=== PATIENT | female | born 1985 | race Caucasian/White ===

== ENCOUNTER → 2018-05-06 09:24 | Outpatient (CLI) | payer OTHER, SELFPAY ==
[2018-05-06 10:45] LABS: Add Manual Diff / Slide Review NO; Basophils Percent Auto 0.2 % (0-2); Eosinophils Percent Auto 1.7 % (2-4); Hematocrit 36.1 % (36-46); Hemoglobin 12.3 g/dL (12.0-16.0); Lymphocytes Percent Auto 26.4 % (25-40); Mean Corpuscular HGB Conc 34.2 % (30-36); Mean Corpuscular Hemoglobin 30.7 PG (26-34); Mean Corpuscular Volume 89.5 fL (80-100); Monocytes Percent Auto 5.3 % (3-14); Neutrophils Absolute Auto 4200 /uL (3000-5900); Neutrophils Percent Auto 66.4 % (50-75); Platelet Count 298 X10^3/uL (150-400); Red Blood Cell Count 4.03 X10^6/uL (4.0-5.2); Red Cell Distribution Width 11.7 % (11.6-14.8); White Blood Cell Count 6.3 X10^3/uL (4.5-11.0)
[2018-05-06 11:40] LABS: Appearance Urine UA CLEAR; Bilirubin Urine UA NEGATIVE (NEGATIVE); Color Urine UA YELLOW; Glucose Urine UA NEGATIVE (Normal); Ketones Urine UA NEGATIVE (NEGATIVE); Leukocyte Esterase Urine UA 1+ (NEGATIVE); Nitrite Urine UA NEGATIVE (Negative); Occult Blood Urine UA NEGATIVE (Negative); Protein Urine UA NEGATIVE (Negative); Specific Gravity Urine UA <=1.005 (1.000-1.035); Urobilinogen Urine UA 0.2 E.U./dL (0.2)
[2018-05-06 12:58] LABS: HIV 1 and 2 Antibody NEGATIVE (NEGATIVE); Hep C Virus Ab w/Reflex Quant NEGATIVE s/c (NEGATIVE); Hepatitis B Surface Antigen NEGATIVE s/c (NEGATIVE)
[2018-05-06 13:33] LABS: Bacteria Urine None Seen
[2018-05-06 13:50] LABS: RBC Urine 0-1/HPF (0-5/HPF); Squamous Epithelial Cell Urine 0-1 /HPF; Urine Comments Microscopic Normal; WBC Urine 0-1/HPF (0-5/HPF)
[2018-05-06 19:25] LABS: Rubella Antibody IgG 93.1 IU/mL (>15)
[2018-05-07 11:12] LABS: RPR Screen Nonreactive (Nonreactive)
[2018-05-07 15:00] LABS: HSV 2 IGG AB < 0.90 index (< 0.90); HSV1IGG < 0.90 index (< 0.90)
== END ==
PROVIDERS: PCP Family Medicine; Visit Provider Specialist
DX: Z34.01 Encounter for supervision of normal first pregnancy, first trimester (principal); Z3A.09 9 weeks gestation of pregnancy
CPT/HCPCS: 36415; 80055; 81003; 81015; 86695; 86696; 86703; 86787; 86803; 86850; 86900; 86901; 87086

== ENCOUNTER → 2018-07-18 07:16 | Outpatient (CLI) | payer OTHER, SELFPAY ==
--- NOTE | 2018-07-18 07:17 | DI.US.S_ITS ---
PROCEDURE: US OB >= 14 WEEKS FETUS INDICATIONS: ANATOMY OUTSIDE/PRIOR DATING DATA: Last menstrual period (LMP): 02/24/18. LMP-based estimated date of delivery (FLOYD): 12/06/18. First dating scan (date and location): 05/13/18. Estimated date of delivery (FLOYD) from first dating scan: 12/01/18. TECHNIQUE: Real-time scanning was performed of the fetus, with image documentation and biometric measurements. Endovaginal scanning: No COMPARISON: [facility], , OB >= 14 WEEKS FETUS, 06/28/2018, 13:55. FINDINGS: General: A single living intrauterine gestation is present. Presentation: Vertex. Placenta: Placental position is posterior, without previa. Amniotic fluid index: 13.8 cm, normal range is 5-24 cm. heart rate: 144 beats per minute. Maternal cervical canal: 4.3 cm long. Normal lower limit is 2.5 cm. biometrics: Biparietal diameter: 20 weeks 6 days Head circumference: 20 weeks 3 days Abdominal circumference: 20 weeks 2 days Femur length: 20 weeks 6 days Estimated gestational age from initial scan: 20 weeks 4 days Composite gestational age from present scan: 20 weeks 4 days Estimated weight and percentile: 462 g; 44 percentile Measurement variability for biometric dating: +/- 7 days from 14 weeks to 15 weeks 6 days gestation, +/- 10 days from 16 weeks to 21 weeks 6 days gestation, +/- 2 weeks from 22 weeks to 27 weeks 6 days gestation, +/- 3 weeks for 28 weeks gestation or later. weight reference: 4500 g or EFW >90/95% is considered macrosomia or large for gestational age. EFW <10% is small for gestational age. EFW 5% or less is considered intra-uterine growth restriction. Anatomic survey: Neuro: Ventricles are non-dilated at less than 10 mm. Cisterna magna is normal at 3-11 mm. Cerebellum is normal in size and morphology. Nuchal skin fold: Normal at less than 6 mm between 14-21 weeks gestational age. Face: Nose and lips, facial profile are normal. Spine: No evidence for spina bifida. Heart: 4-chambered heart is present, with normal ventricular outflow tracts. Diaphragm: Diaphragm is intact. Stomach: Left-sided stomach is present. Kidneys: No hydronephrosis. Normal is less than 5 mm in 2nd trimester, less than 7 mm in 3rd trimester. Cord: 3-vessel cord has orthotopic insertion. Bladder: Normal in size. Extremities: All 4 extremities identified. IMPRESSION: 1. Single living IUP we demonstrated and interval growth of normal. 2. Normal anatomic survey. Dictated by: Jimenez RODRIGUEZ Interpreted: Mary Campos MD on 07/18/2018 at 13:11 Approved by: Mary Campos M.D. on 07/18/2018 at 16:48
== END ==
PROVIDERS: PCP Family Medicine; Visit Provider Specialist
DX: Z34.02 Encounter for supervision of normal first pregnancy, second trimester (principal); Z3A.20 20 weeks gestation of pregnancy
CPT/HCPCS: 76811

== ENCOUNTER → 2018-08-31 10:01 | Outpatient (CLI) | payer OTHER, SELFPAY ==
[2018-08-31 11:52] LABS: Hematocrit 34.2 % (36-46); Hemoglobin 11.4 g/dL (12.0-16.0)
[2018-08-31 12:19] LABS: GTT (PREG) 1 Hour PP 50gm Dose 90 mg/dL (76-139)
== END ==
PROVIDERS: PCP Family Medicine; Visit Provider Specialist
DX: Z3A.26 26 weeks gestation of pregnancy (principal)
CPT/HCPCS: 36415; 82950; 85014; 85018

== ENCOUNTER → 2018-11-06 08:26 | Outpatient (CLI) | payer OTHER, SELFPAY ==
[2018-11-07 14:06] LABS: Strep Grp B PCR NEG for Grp B Strep
== END ==
PROVIDERS: PCP Family Medicine; Visit Provider Specialist
DX: Z34.83 Encounter for supervision of other normal pregnancy, third trimester (principal); Z3A.36 36 weeks gestation of pregnancy
CPT/HCPCS: 87653

== ENCOUNTER 2018-12-05 12:07 | Outpatient (CLI) | payer OTHER, SELFPAY ==
--- NOTE | 2018-12-05 12:56 | PM.OBTRLD ---
Visit Information Visit Information Date of evaluation: 12/05/18 Primary OB Provider: Aviva Carter Reason for Evaluation: Yes non-stress test non-stress test reason: other (post dates) PFSH Social History Smoking Status: Never smoker Social History Smoking Status: Never smoker Evaluation Evaluation Baseline heart rate: 120 Variability: Moderate (11-25) monitor accelerations: Present monitor decelerations: Absent Contraction Frequency (minutes): 8 Uterine Contraction Intensity: Mild Category of Tracing: I Cervical dilation (cm): 3 Cervical effacement (%): 50 station: -2 Diagnosis, Plan/Disposition Final Diagnosis (1) 40 weeks gestation of : Current Visit: Yes Status: Acute Plan/Disposition Plan: home induction scheduled in am OB Disposition: home
== END 2018-12-05 13:15 | disposition home or self-care (01) ==
LOC: LABOR 12:23 → OB 12-06 12:43
PROVIDERS: PCP Family Medicine; Visit Provider Specialist
DX: O48.0 Post-term pregnancy (principal); Z3A.40 40 weeks gestation of pregnancy
CPT/HCPCS: 59025; G0378; G0379

== ENCOUNTER 2018-12-06 07:04 | Inpatient (IN) | payer OTHER, SELFPAY ==
[2018-12-06] MEDS: LACTATED RINGERS 1,000 ML 100 ML IV ×3 (08:00→19:08)
[2018-12-06] MEDS: OXYTOCIN PREMIX 30 UNIT/500 ML PLAST..BAG IV (08:27)
--- NOTE | 2018-12-06 08:36 | PM.OBHP.1 ---
OB HPI Date/Time Date of admission: 12/06/18 Date Patient Seen: 12/06/18 Time Patient Seen: 08:37 History of Present Condition Chief complaint: EVALUATION OF LABOR : 1 Para: 0 Estimated Date of Delivery: 12/03/18 Estimated Gestational Age (weeks): 40 Narrative: Nayeli Alberto is a 33 year old female admitted for induction for grade 3 placenta decreased amniotic fluid Indications Indication for induction OB: other (Grade 3 placenta and decreased amniotic fluid) History of Present care: good care, initiated at week # (11), number of visits (13) and pounds weight gain (40) Dating criteria: LMP confirmed by 1st trimester US Ultrasounds: normal mid trimester US Obstetrical complications: none Medical complications: none Preadmission Labs Blood type: A (+) positive -: Antibody screen: negative, GBS status: negative, HBsAG: negative, HIV: negative and RPR/VDLR: negative -: Chlamydia screen: not detected and Gonorrhea screen: not detected -: Rubella: immune and Varicella: immune HCAB: negative PAP: Normal 1 hr GTT: 90 Evaluation Evaluation Baseline heart rate: 130 Variability: Moderate (11-25) monitor accelerations: Present monitor decelerations: Absent Contraction Frequency (minutes): 0 Category of Tracing: I Cervical dilation (cm): 3 Cervical effacement (%): 50 station: -2 [facility] Social History Smoking Status: Never smoker Social History Smoking Status: Never smoker Meds Home Medications Medication Instructions Recorded Confirmed Type 1 tab PO DAILY 05/06/18 05/06/18 History vitamin,calcium,vxnniiwr-maqv-ppvlb acid tablet Double Electric Breast Pump #1 ea 09/24/18 Rx Allergies Allergy/AdvReac Type Severity Reaction Status Date / Time No Known Drug Allergies Allergy Unverified 05/06/18 08:36 Review of Systems Review of Systems Patient denies any headaches, scotomata, epigastric pain. No leakage of fluid. Good movement. All systems reviewed & are unremarkable except as noted in HPI and below Exam Vital Signs (past 8 hours): Blood pressure 125/87, pulse 100, temperature 97.1? Narrative Exam Narrative: HEENT exam within normal limits. Lungs are clear to auscultation percussion. Heart is regular rate and rhythm no S3-S4 or murmurs. Abdomen is gravid. Extremities with trace edema and nontender. Assessment and Plan Assessment and Plan Assessment and Plan narrative: 40w 3d gestation with grade 3 placenta and YOLY of 6 admitted for Pitocin induction Time Spent with Patient Total time spent with greater than 50% in coordination of care (as documented) at patient's floor/unit and/or counseling patient:: less than 15 minutes
--- NOTE | 2018-12-06 08:43 | P.HPOB_ITS ---
OB HPI Date/Time Date of admission: 12/06/18 Date Patient Seen: 12/06/18 Time Patient Seen: 08:37 History of Present Condition Chief complaint: EVALUATION OF LABOR : 1 Para: 0 Estimated Date of Delivery: 12/03/18 Estimated Gestational Age (weeks): 40 Narrative: Nayeli Alberto is a 33 year old female admitted for induction for grade 3 placenta decreased amniotic fluid Indications Indication for induction OB: other (Grade 3 placenta and decreased amniotic fluid) History of Present care: good care, initiated at week # (11), number of visits (13) and pounds weight gain (40) Dating criteria: LMP confirmed by 1st trimester US Ultrasounds: normal mid trimester US Obstetrical complications: none Medical complications: none Preadmission Labs Blood type: A (+) positive -: Antibody screen: negative, GBS status: negative, HBsAG: negative, HIV: negative and RPR/VDLR: negative -: Chlamydia screen: not detected and Gonorrhea screen: not detected -: Rubella: immune and Varicella: immune HCAB: negative PAP: Normal 1 hr GTT: 90 Evaluation Evaluation Baseline heart rate: 130 Variability: Moderate (11-25) monitor accelerations: Present monitor decelerations: Absent Contraction Frequency (minutes): 0 Category of Tracing: I Cervical dilation (cm): 3 Cervical effacement (%): 50 station: -2 [facility] Social History Smoking Status: Never smoker Social History Smoking Status: Never smoker Meds Home Medications Medication Instructions Recorded Confirmed Type 1 tab PO DAILY 05/06/18 05/06/18 History vitamin,calcium,ejamudcf-blwg-tikrq acid tablet Double Electric Breast Pump #1 ea 09/24/18 Rx Allergies Allergy/AdvReac Type Severity Reaction Status Date / Time No Known Drug Allergies Allergy Unverified 05/06/18 08:36 Review of Systems Review of Systems Patient denies any headaches, scotomata, epigastric pain. No leakage of fluid. Good movement. All systems reviewed & are unremarkable except as noted in HPI and below Exam Vital Signs (past 8 hours): Blood pressure 125/87, pulse 100, temperature 97.1? Narrative Exam Narrative: HEENT exam within normal limits. Lungs are clear to auscultation percussion. Heart is regular rate and rhythm no S3-S4 or murmurs. Abdomen is gravid. Extremities with trace edema and nontender. Assessment and Plan Assessment and Plan Assessment and Plan narrative: 40w 3d gestation with grade 3 placenta and YOLY of 6 admitted for Pitocin induction Time Spent with Patient Total time spent with greater than 50% in coordination of care (as documented) at patient's floor/unit and/or counseling patient:: less than 15 minutes
[2018-12-06 09:59] LABS: Add Manual Diff / Slide Review NO; Basophils Absolute Auto 0 /uL (0-100); Basophils Percent Auto 0.2 % (0-2); Eosinophils Absolute Auto 100 /uL (0-450); Eosinophils Percent Auto 1.2 % (2-4); Hematocrit 34.1 % (36-46); Hemoglobin 11.1 g/dL (12.0-16.0); Lymphocytes Absolute Auto 1600 /uL (1100-4500); Lymphocytes Percent Auto 17.7 % (25-40); Mean Corpuscular HGB Conc 32.5 % (30-36); Mean Corpuscular Hemoglobin 29.6 PG (26-34); Mean Corpuscular Volume 90.9 fL (80-100); Monocytes Absolute Auto 500 /uL (0-900); Monocytes Percent Auto 5.1 % (3-14); Neutrophils Absolute Auto 6900 /uL (1500-7000); Neutrophils Percent Auto 75.8 % (50-75); Platelet Count 217 X10^3/uL (150-400); Red Blood Cell Count 3.75 X10^6/uL (4.0-5.2); Red Cell Distribution Width 13.9 % (11.6-14.8)
[2018-12-06 14:04] VITALS: BP 125/87
--- NOTE | 2018-12-06 21:11 | PM.OBPRVD ---
Delivery date: 12/06/18 Intrapartal events: None Induction method: per pitocin protocol Delivery monitor: external FHT and external uterine Route of delivery: L&D Laceration Description: Periurethral - 1st Degree Delivery repair: chromic (4-0) Estimated blood loss (mL): 100 Anesthesia type: Epidural Narrative: Patient arrived on Labor and delivery for induction for grade 3 placenta and YOLY of 6. She was started on Pitocin. She had spontaneous rupture membranes. She received an epidural catheter for pain control. heart tones category 1-2 throughout labor. Patient delivered spontaneously, over an intact perineum. The viable male was placed on maternal abdomen. The cord was clamped at 5 minutes. Cord bloods were obtained. Placenta delivered spontaneously, intact, with 3 vessels. There were no cervical or vaginal tears. There was a first-degree left periurethral labial tear that was repaired with 4 0 chromic suture. Estimated blood loss 100 cc. Both infant mother doing well. Baby 1: gender: Male Presentation: vertex position: Right Occiput Anterior Placenta delivery description: Spontaneous cord vessel description: Around Body x1 score (1 min): 6 score (5 min): 8 Plan for aftercare: Routine care
[2018-12-06] MEDS: DERMOPLAST SPRAY 20% 60 ML 1 SPRAY TOP (23:34)
[2018-12-06] MEDS: IBUPROFEN 600 MG TABLET PO (23:34)
[2018-12-07] MEDS: IBUPROFEN 600 MG TABLET PO ×3 (05:38→18:28)
[2018-12-07 07:44] LABS: Add Manual Diff / Slide Review NO; Basophils Absolute Auto 0 /uL (0-100); Basophils Percent Auto 0.1 % (0-2); Eosinophils Absolute Auto 100 /uL (0-450); Eosinophils Percent Auto 0.6 % (2-4); Hematocrit 32.9 % (36-46); Hemoglobin 10.9 g/dL (12.0-16.0); Lymphocytes Absolute Auto 1500 /uL (1100-4500); Lymphocytes Percent Auto 10.2 % (25-40); Mean Corpuscular HGB Conc 33.1 % (30-36); Mean Corpuscular Hemoglobin 29.9 PG (26-34); Mean Corpuscular Volume 90.2 fL (80-100); Monocytes Absolute Auto 800 /uL (0-900); Monocytes Percent Auto 5.3 % (3-14); Neutrophils Absolute Auto 12700 /uL (1500-7000); Neutrophils Percent Auto 83.8 % (50-75); Platelet Count 211 X10^3/uL (150-400); Red Blood Cell Count 3.65 X10^6/uL (4.0-5.2); Red Cell Distribution Width 13.9 % (11.6-14.8); White Blood Cell Count 15.1 X10^3/uL (4.5-11.0)
--- NOTE | 2018-12-07 11:49 | PM.OBPN.1 ---
Subjective - OB Patient comments: no complaints baby status: doing well [place] feeding status: exclusively breast feeding Date Patient Seen: 12/07/18 Time Patient Seen: 11:50 Interval history: Patient is doing well. She has some tenderness of her vaginal opening. Bleeding is mild. No headaches, scotomata, epigastric pain. Exam Vital Signs (past 8 hours): Blood pressure 145/83, pulse 73, temperature 97.3? Narrative Exam Narrative: Abdomen is soft, nontender. Uterus is firm, at U, nontender. Mild lochia. Extremities without edema and nontender. Objective Labs Result Diagrams: 12/07/18 07:15 Labs: Laboratory Results - last 24 hr 12/07/18 07:15 WBC 15.1 H D RBC 3.65 L Hgb 10.9 L Hct 32.9 L MCV 90.2 MCH 29.9 MCHC 33.1 RDW 13.9 Plt Count 211 Neut % (Auto) 83.8 H Lymph % (Auto) 10.2 L [place] % (Auto) 5.3 Eos % (Auto) 0.6 L Baso % (Auto) 0.1 Neut # (Auto) 70908 H Lymph # (Auto) 1500 [place] # (Auto) 800 Eos # (Auto) 100 Baso # (Auto) 0 Assessment & Plan (1) Vaginal delivery: Status: Acute Assessment and plan: Patient is day 1 doing well. Routine care. Probably home in a.m. if doing well Current Visit: Yes Plan day: 1 plan OB: routine care Time Spent With Patient Total time spent is greater than 50% in coordination of care (as documented) at patient's floor/unit and/or counseling patient: less than 15 minutes
--- NOTE | 2018-12-07 11:52 | P.PNOB_ITS ---
Subjective - OB Patient comments: no complaints baby status: doing well [place] feeding status: exclusively breast feeding Date Patient Seen: 12/07/18 Time Patient Seen: 11:50 Interval history: Patient is doing well. She has some tenderness of her vaginal opening. Bleeding is mild. No headaches, scotomata, epigastric pain. Exam Vital Signs (past 8 hours): Blood pressure 145/83, pulse 73, temperature 97.3? Narrative Exam Narrative: Abdomen is soft, nontender. Uterus is firm, at U, nontender. Mild lochia. Extremities without edema and nontender. Objective Labs Result Diagrams: 12/07/18 07:15 Labs: Laboratory Results - last 24 hr 12/07/18 07:15 WBC 15.1 H D RBC 3.65 L Hgb 10.9 L Hct 32.9 L MCV 90.2 MCH 29.9 MCHC 33.1 RDW 13.9 Plt Count 211 Neut % (Auto) 83.8 H Lymph % (Auto) 10.2 L [place] % (Auto) 5.3 Eos % (Auto) 0.6 L Baso % (Auto) 0.1 Neut # (Auto) 88265 H Lymph # (Auto) 1500 [place] # (Auto) 800 Eos # (Auto) 100 Baso # (Auto) 0 Assessment & Plan (1) Vaginal delivery: Status: Acute Assessment and plan: Patient is day 1 doing well. Routine care. Probably home in a.m. if doing well Current Visit: Yes Plan day: 1 plan OB: routine care Time Spent With Patient Total time spent is greater than 50% in coordination of care (as documented) at patient's floor/unit and/or counseling patient: less than 15 minutes
[2018-12-08] MEDS: IBUPROFEN 600 MG TABLET PO ×2 (05:09→12:05)
--- NOTE | 2018-12-08 09:47 | PM.OBDS.1 ---
Discharge Providers Date of admission: 12/06/18 07:04 Discharge Date: 12/08/18 Primary care physician: Mariusz Juan MD Consults: 12/06/18 23:22 Consult to Insole Presser Routine Comment: Discharge provider: Aviva Carter MD Summary Date Patient Seen: 12/08/18 Time Patient Seen: 09:48 Procedures: Pitocin induction, epidural catheter, spontaneous vaginal delivery, repair of first-degree labial laceration Hospital Course: Patient arrived on Labor and delivery for Pitocin induction for postdates, grade 3 placenta, decreased amniotic fluid she underwent Pitocin induction and had a epidural catheter for pain control. Patient had a prolonged 2nd stage of 5 hours and 42 minutes. This was due to the fetus coming down an asynclitic position and periodic need to stop pushing for various reasons. She delivered by spontaneousl vaginal delivery. She had a first-degree labial tear that was repaired. She did well . She is having some issues with breast-feeding. She has a follow-up appointment in 1 day with consult. Her pain is under control. She has mild bleeding. No signs or symptoms of preeclampsia. Peripartum Data Delivery Method: Natural Vaginal Laceration description: Periurethral - 1st Degree Procedures: Pitocin induction, epidural catheter, spontaneous vaginal delivery, repair of first-degree labial laceration complications: none [place] 1: Gender: Male Disposition of : home Discharge Diagnosis (1) Vaginal delivery: Status: Acute Status at Discharge Cognitive/behavioral status at discharge: oriented Functional status at discharge: independent ambulation Overall status at discharge: patient is progressing back to baseline Time Spent with Patient Total time spent providing and/or coordinating discharge services: Objective Labs Result Diagrams: 12/07/18 07:15 Exam Vital Signs (past 8 hours): Blood pressure 146/94 max with most blood pressures less than or equal to 130/75, pulse 78, temperature 97.9? Narrative Exam Narrative: Patient's abdomen is soft, nontender. Uterus is firm, at U, nontender. Her repair is intact. Mild lochia. Extremities without edema and nontender. Patient is A positive and rubella immune. She received it Tdap vaccine in the 3rd trimester. Discharge Plan Discharge Plan Patient Disposition: Home Discharge Med Rec/Prescriptions Prescriptions: New ibuprofen 600 mg Tablet 600 mg PO Q6HR PRN (Reason: Pain, Mild (1-3)) Qty: 20 RF: 0 Continued prenat.vits,da,qxo-wkoz-hzvsx tablet 1 tab PO DAILY RF: 0 No Action Double Electric Breast Pump Qty: 1 RF: 0 Follow up/Referrals: Mariusz Juan MD [Primary Care Provider] - Aviva Carter MD [Family Provider] - 1 Month Provider Discharge Instructions Diet: Regular Activity: Nothing in vagina for 4 weeks Skin/Wound/Dressing Care Report to your healthcare provider any signs of infection, such as:: chills, fever and increased pain Discharge Data Primary Care Provider: Mariusz Juan Attending Provider: Aviva Carter Admit Date/Time: 12/06/18 07:04
--- NOTE | 2018-12-08 09:53 | P.DS_ITS ---
Discharge Providers Date of admission: 12/06/18 07:04 Discharge Date: 12/08/18 Primary care physician: Mariusz Juan MD Consults: 12/06/18 23:22 Consult to Support Coordinator Routine Comment: Discharge provider: Aviva Carter MD Summary Date Patient Seen: 12/08/18 Time Patient Seen: 09:48 Procedures: Pitocin induction, epidural catheter, spontaneous vaginal delivery, repair of first-degree labial laceration Hospital Course: Patient arrived on Labor and delivery for Pitocin induction for postdates, grade 3 placenta, decreased amniotic fluid she underwent Pitocin induction and had a epidural catheter for pain control. Patient had a prolonged 2nd stage of 5 hours and 42 minutes. This was due to the fetus coming down an asynclitic position and periodic need to stop pushing for various reasons. She delivered by spontaneousl vaginal delivery. She had a first-degree labial tear that was repaired. She did well . She is having some issues with breast- feeding. She has a follow-up appointment in 1 day with consult. Her pain is under control. She has mild bleeding. No signs or symptoms of preeclampsia. Peripartum Data Infant Delivery Method: Natural Vaginal Laceration description: Periurethral - 1st Degree Procedures: Pitocin induction, epidural catheter, spontaneous vaginal delivery, repair of first-degree labial laceration complications: none 1: Gender: Male Disposition of : home Discharge Diagnosis (1) Vaginal delivery: Status: Acute Status at Discharge Cognitive/behavioral status at discharge: oriented Functional status at discharge: independent ambulation Overall status at discharge: patient is progressing back to baseline Time Spent with Patient Total time spent providing and/or coordinating discharge services: Objective Labs Result Diagrams: 12/07/18 07:15 Exam Vital Signs (past 8 hours): Blood pressure 146/94 max with most blood pressures less than or equal to 130/75, pulse 78, temperature 97.9? Narrative Exam Narrative: Patient's abdomen is soft, nontender. Uterus is firm, at U, nontender. Her repair is intact. Mild lochia. Extremities without edema and nontender. Patient is A positive and rubella immune. She received it Tdap vaccine in the 3rd trimester. Discharge Plan Discharge Plan Patient Disposition: Home Discharge Med Rec/Prescriptions Prescriptions: New ibuprofen 600 mg Tablet 600 mg PO Q6HR PRN (Reason: Pain, Mild (1-3)) Qty: 20 RF: 0 Continued prenat.vits,da,jpx-qbck-smdhu tablet 1 tab PO DAILY RF: 0 No Action Double Electric Breast Pump Qty: 1 RF: 0 Follow up/Referrals: Mariusz Juan MD [Primary Care Provider] - Aviva Carter MD [Family Provider] - 1 Month Provider Discharge Instructions Diet: Regular Activity: Nothing in vagina for 4 weeks Skin/Wound/Dressing Care Report to your healthcare provider any signs of infection, such as:: chills, fever and increased pain Discharge Data Primary Care Provider: Mariusz Juan Attending Provider: Aviva Carter Admit Date/Time: 12/06/18 07:04
[2018-12-08 11:18] VITALS: BP 134/92; PULSE 87; RESP 16; TEMP 36.7
== END 2018-12-08 12:20 | disposition home or self-care (01) | DRG 806 ==
PROVIDERS: Admitting Provider Specialist; Family Provider Specialist; PCP Family Medicine; Visit Provider Specialist
DX: O44.03 Complete placenta previa NOS or without hemorrhage, third trimester (principal); O41.03X0 Oligohydramnios, third trimester, not applicable or unspecified; Z37.0 Single live birth; Z3A.40 40 weeks gestation of pregnancy; O70.0 First degree perineal laceration during delivery
CPT/HCPCS: 01967; 36415; 59025; 59050; 59400; 85025; 86850; 86900; 86901; G0379; J2590

== ENCOUNTER → 2020-09-23 09:28 | Outpatient (CLI) | payer OTHER, SELFPAY ==
[2020-09-23] MEDS: COVID-19 VACC, Ad26(JANSSEN)/PF 0.5 ML IM (09:34)
--- NOTE | 2020-09-23 11:04 | PC.NURSE ---
Patient became pale, diaphoretic. Moved patient to recliner. Put patient in reclining position. 9:47 BP 130/83 P 82 Sat 98% 9:57 BP 133/91 P 87 Sat 99% - Patient not as pale, sipping juice 10:10 BP 133/91 P 89 Sat 100% - pt states she feel fine, skin pink 10:15 BP 139/95 P 95 Sat 100% - pt states she feels fine. continued observation because of increase in BP and P 10:25 BP 152/86 P 92 Sat 100% Patient skin pink, no longer diaphoretic. States she feels well. Patient encouraged to follow up with PCP regarding elevated diastolic blood pressure.
== END ==
PROVIDERS: Family Provider Specialist; PCP Family Medicine; Visit Provider Internal Medicine
DX: Z23 Encounter for immunization (principal)
CPT/HCPCS: 0031A; 91303

== ENCOUNTER → 2020-10-07 09:00 | Outpatient (CLI) | payer OTHER, SELFPAY ==
[2020-10-07 09:49] LABS: Add Manual Diff / Slide Review NO; Basophils Absolute Auto 0 /uL (0-100); Basophils Percent Auto 0.4 % (0-2); Eosinophils Absolute Auto 100 /uL (0-450); Eosinophils Percent Auto 1.3 % (2-4); Hematocrit 38.4 % (36-46); Hemoglobin 13.2 g/dL (12.0-16.0); Lymphocytes Absolute Auto 1300 /uL (1100-4500); Lymphocytes Percent Auto 22.5 % (25-40); Mean Corpuscular HGB Conc 34.3 % (30-36); Mean Corpuscular Hemoglobin 31.3 PG (26-34); Mean Corpuscular Volume 91.4 fL (80-100); Monocytes Absolute Auto 300 /uL (0-900); Monocytes Percent Auto 5.6 % (3-14); Neutrophils Absolute Auto 4000 /uL (1500-7000); Neutrophils Percent Auto 70.2 % (50-75); Platelet Count 318 X10^3/uL (150-400); Red Cell Distribution Width 12.2 % (11.6-14.8); White Blood Cell Count 5.7 X10^3/uL (4.5-11.0)
[2020-10-07 10:10] LABS: Alanine Aminotransferase 14 IU/L (<35); Albumin 4.6 g/dL (3.5-5.0); Albumin Globulin Ratio 1.6 (1.0-2.8); Alkaline Phosphatase 68 U/L (38-126); Aspartate Aminotransferase 23 IU/L (14-36); BUN Creatinine Ratio 14.8 (6-22); Bilirubin Total 0.3 mg/dL (0.2-1.3); Blood Urea Nitrogen 8 mg/dL (7-17); Calcium 9.5 mg/dL (8.4-10.2); Carbon Dioxide 29 mmol/L (22-32); Chloride 101 mmol/L (98-107); Cholesterol 184 mg/dL (140-199); Estimated Glomerular Filt Rate > 60.0 mL/min (>60); Globulin 2.9 g/dL (1.7-4.1); Glucose 108 mg/dL (70-100); HDL Cholesterol 55 mg/dL (40-60); HEMOLYSIS < 15 (0-50); LDL Cholesterol Calculated 111 mg/dL (<100); Potassium 3.9 mmol/L (3.4-5.1); Sodium 139 mmol/L (137-145); Total Protein 7.5 g/dL (6.3-8.2); Triglycerides 88 mg/dL (35-150)
[2020-10-07 10:45] LABS: TSH w/ Reflex to FT4 2.14 uIU/mL (0.47-4.68)
== END ==
PROVIDERS: Family Provider Specialist; PCP Family Medicine; Referring Provider Family Medicine; Visit Provider Family Medicine
DX: I10 Essential (primary) hypertension (principal)
CPT/HCPCS: 36415; 80053; 80061; 84443; 85025

== ENCOUNTER → 2021-08-26 09:17 | Outpatient (CLI) | payer OTHER, SELFPAY ==
--- NOTE | 2021-08-26 09:19 | DI.US.S_ITS ---
PROCEDURE: US OB <= 14 WEEKS FETUS INDICATIONS: DATES OUTSIDE/PRIOR DATING DATA: Last menstrual period (LMP): June 21, 2021. LMP-based estimated date of delivery (FLOYD): March 28, 2022. First dating scan (date): August 27, 2019. Estimated date of delivery (FLOYD) from first dating scan: March 29, 2022. TECHNIQUE: Real-time scanning was performed of the fetus and maternal pelvic organs, with image documentation. Endovaginal scanning was also performed to better visualize the fetus and maternal ovaries. COMPARISON: [facility], US, US OB <= 14 WEEKS FETUS, 05/13/2018, 8:38. FINDINGS: Embryo: [place]-rump length: 2.5 cm, compatible with a 9 week, 2 day gestation. Heart rate: 182 beats per Min Maternal organs: Thick-walled lesion in the right ovary, compatible with a corpus luteum. IMPRESSION: Early live single intrauterine gestation as detailed above. We strive to produce accurate, complete, and clear reports of imaging services. To assist us in improving patient care, this report was composed using standard report templates and voice recognition software. Therefore, it may contain abnormal punctuation, insertions and/or omissions. Occasional wrong-word or sound-alike substitutions may occur. Though we review the report and make efforts to correct it, we do recommend that the report be read carefully in proper context to recognize any text inaccuracies. Dictated by: Grover Piper M.D. on 08/26/2021 at 10:08 Approved by: Grover Piper M.D. on 08/26/2021 at 10:10
[2021-08-26 12:16] LABS: Alanine Aminotransferase 11 IU/L (<35); Albumin 4.4 g/dL (3.5-5.0); Albumin Globulin Ratio 1.4 (1.0-2.8); Alkaline Phosphatase 41 U/L (38-126); Aspartate Aminotransferase 24 IU/L (14-36); BUN Creatinine Ratio 15.6 (6-22); Bilirubin Total 0.3 mg/dL (0.2-1.3); Blood Urea Nitrogen 7 mg/dL (7-17); Calcium 9.4 mg/dL (8.4-10.2); Carbon Dioxide 26 mmol/L (22-32); Chloride 104 mmol/L (98-107); Estimated Glomerular Filt Rate > 60.0 mL/min (>60); Globulin 3.2 g/dL (1.7-4.1); Glucose 93 mg/dL (70-100); HEMOLYSIS < 15 (0-50); Potassium 3.9 mmol/L (3.4-5.1); Sodium 135 mmol/L (137-145); Total Protein 7.6 g/dL (6.3-8.2)
[2021-08-26 12:47] LABS: Appearance Urine UA CLEAR; Bilirubin Urine UA NEGATIVE (NEGATIVE); Color Urine UA YELLOW; Glucose Urine UA NEGATIVE (Negative); Ketones Urine UA NEGATIVE (NEGATIVE); Leukocyte Esterase Urine UA NEGATIVE (NEGATIVE); Nitrite Urine UA NEGATIVE (Negative); Occult Blood Urine UA NEGATIVE (Negative); Protein Urine UA NEGATIVE (Negative); Specific Gravity Urine UA <=1.005 (1.000-1.035); Urobilinogen Urine UA 0.2 E.U./dL (0.2)
[2021-08-26 12:51] LABS: Hepatitis B Surface Antigen NEGATIVE s/c (NEGATIVE); Rubella Antibody IgG 89.5 IU/mL (>15)
[2021-08-26 13:05] LABS: HIV 1 & 2 Ab/Ag 4th Gen Combo NEGATIVE (NEGATIVE); Hep C Virus Ab w/Reflex Quant NEGATIVE s/c (NEGATIVE)
[2021-08-26 14:31] LABS: Add Manual Diff / Slide Review NO; Basophils Absolute Auto 0 /uL (0-100); Basophils Percent Auto 0.4 % (0-2); Eosinophils Absolute Auto 100 /uL (0-450); Eosinophils Percent Auto 1.9 % (2-4); Hematocrit 32.9 % (36-46); Hemoglobin 11.2 g/dL (12.0-16.0); Lymphocytes Absolute Auto 1800 /uL (1100-4500); Lymphocytes Percent Auto 23.8 % (25-40); Mean Corpuscular Hemoglobin 30.5 PG (26-34); Mean Corpuscular Volume 89.9 fL (80-100); Monocytes Absolute Auto 400 /uL (0-900); Monocytes Percent Auto 5.3 % (3-14); Neutrophils Absolute Auto 5300 /uL (1500-7000); Neutrophils Percent Auto 68.6 % (50-75); Platelet Count 299 X10^3/uL (150-400); Red Blood Cell Count 3.66 X10^6/uL (4.0-5.2); Red Cell Distribution Width 12.4 % (11.6-14.8); White Blood Cell Count 7.7 X10^3/uL (4.5-11.0)
[2021-08-27 08:59] LABS: RPR Screen Non Reactive (Non Reactive); Varicella IgG Antibody 1670 index (Immune >165)
== END ==
PROVIDERS: Family Provider Specialist; PCP Family Medicine; Referring Provider Family Medicine; Visit Provider Family Medicine
DX: O09.521 Supervision of elderly multigravida, first trimester (principal); O16.1 Unspecified maternal hypertension, first trimester; Z36.0 Encounter for antenatal screening for chromosomal anomalies; Z36.9 Encounter for antenatal screening, unspecified; Z31.438 Encounter for other genetic testing of female for procreative management; Z3A.09 9 weeks gestation of pregnancy
CPT/HCPCS: 36415; 76801; 76817; 80053; 80055; 81003; 81420; 86787; 86803; 86850; 86900; 86901; 87086; 87389

== ENCOUNTER → 2021-09-11 09:25 | Outpatient (CLI) | payer OTHER, SELFPAY ==
[2021-09-11 11:00] LABS: Collection Time Urine 24 Hours; Protein (Total) Urine Random 14 mg/dL (0-12); Total Protein 24 Hour Urine 630 mg/day (42-225); Total Volume Urine 4500 mL
== END ==
PROVIDERS: Family Provider Specialist; PCP Family Medicine; Referring Provider Family Medicine; Visit Provider Family Medicine
DX: I10 Essential (primary) hypertension (principal)
CPT/HCPCS: 84156

== ENCOUNTER → 2021-12-31 08:11 | Outpatient (CLI) | payer OTHER, SELFPAY ==
[2021-12-31 10:08] LABS: Add Manual Diff / Slide Review NO; Basophils Absolute Auto 0 /uL (0-100); Basophils Percent Auto 0.1 % (0-2); Eosinophils Absolute Auto 200 /uL (0-450); Eosinophils Percent Auto 2.3 % (2-4); Hematocrit 29.3 % (36-46); Hemoglobin 10.1 g/dL (12.0-16.0); Lymphocytes Absolute Auto 1300 /uL (1100-4500); Lymphocytes Percent Auto 18.1 % (25-40); Mean Corpuscular HGB Conc 34.5 % (30-36); Mean Corpuscular Hemoglobin 31.5 PG (26-34); Mean Corpuscular Volume 91.1 fL (80-100); Monocytes Absolute Auto 300 /uL (0-900); Monocytes Percent Auto 4.2 % (3-14); Neutrophils Absolute Auto 5300 /uL (1500-7000); Neutrophils Percent Auto 75.3 % (50-75); Platelet Count 233 X10^3/uL (150-400); Red Blood Cell Count 3.21 X10^6/uL (4.0-5.2); Red Cell Distribution Width 12.6 % (11.6-14.8); White Blood Cell Count 7.1 X10^3/uL (4.5-11.0)
[2021-12-31 10:27] LABS: Alanine Aminotransferase 13 IU/L (<35); Albumin 3.6 g/dL (3.5-5.0); Albumin Globulin Ratio 1.6 (1.0-2.8); Alkaline Phosphatase 61 U/L (38-126); Aspartate Aminotransferase 22 IU/L (14-36); BUN Creatinine Ratio 12.2 (6-22); Bilirubin Total 0.2 mg/dL (0.2-1.3); Blood Urea Nitrogen 5 mg/dL (7-17); Calcium 8.5 mg/dL (8.4-10.2); Carbon Dioxide 22 mmol/L (22-32); Chloride 103 mmol/L (98-107); Estimated Glomerular Filt Rate > 60 mL/min (>60); GTT (PREG) 1 Hour PP 50gm Dose 119 mg/dL (76-139); Globulin 2.3 g/dL (1.7-4.1); Glucose 119 mg/dL (70-100); HEMOLYSIS < 15 (0-50); Potassium 3.8 mmol/L (3.4-5.1); Sodium 135 mmol/L (137-145); Total Protein 5.9 g/dL (6.3-8.2)
== END ==
PROVIDERS: Family Provider Specialist; PCP Family Medicine; Referring Provider Family Medicine; Visit Provider Family Medicine
DX: I10 Essential (primary) hypertension (principal); Z3A.27 27 weeks gestation of pregnancy
CPT/HCPCS: 36415; 80053; 82950; 85025

== ENCOUNTER → 2022-01-08 07:49 | Outpatient (CLI) | payer OTHER, SELFPAY ==
[2022-01-08 08:46] LABS: Collection Time Urine 24 Hours; Protein (Total) Urine Random 11 mg/dL (0-12); Total Protein 24 Hour Urine 330 mg/day (42-225); Total Volume Urine 3000 mL
== END ==
PROVIDERS: Family Provider Specialist; PCP Family Medicine; Referring Provider Family Medicine; Visit Provider Family Medicine
DX: I10 Essential (primary) hypertension (principal)
CPT/HCPCS: 84156

== ENCOUNTER 2022-01-31 09:50 | Outpatient (CLI) | payer OTHER, SELFPAY ==
--- NOTE | 2022-02-01 00:19 | PM.OBTRLD ---
Visit Information Visit Information Date of evaluation: 01/31/22 Primary OB Provider: Padmini Dunaway On-call OB Provider: Yuli Hines Reason for Evaluation: Yes non-stress test Comments/Additional reasons for admission: NST for cHTN [facility] Medical History Chicken pox (~2000) Chronic hypertension Spontaneous vaginal delivery Surgical History Anesthesia [place] teeth removed (~2005) Family History Father Hyperlipidemia Hypertension Neuropathy of both feet Diabetes mellitus Mother Severe anemia Autoimmune disease Hypertension Brother SIDS (sudden syndrome) Sister History of bipolar disorder Depression Asthma Mental health problem Grandfather Rheumatoid arthritis Grandmother Macular degeneration Grandfather Hyperlipidemia Hypertension Grandmother Asthma History of bipolar disorder Atrial fibrillation Mental health problem Unknown Breast cancer Social History marital status: number of children: 1 household members: spouse and children lives independently: Yes housing: house pets and animals: Yes (Cats - aware toxoplasmosis) education level: college occupational status: employed current occupational exposures/hazards: No special chandrika needs: No seatbelt use: always water heater temp set < 120 deg: Yes working smoke detector in home: Yes fire extinguisher in home: Yes carbon monox detector in home: Yes do you feel safe at home: Yes Smoking Status: Never smoker second hand exposure: No alcohol intake: former substance use type: does not use during the past year weight has: increased > 10 lbs well-balanced diet: daily or most days daily servings fruits/ve-4 caffeine: Yes (200mg) Type(s) of exercise: walking frequency: 5-6 times per week Evaluation Evaluation Variability: Average (6-10) monitor accelerations: Present Monitor Decelerations: Absent Category of Tracing: Reactive Comments: normal FHR baseline Diagnosis, Plan/Disposition Final Diagnosis (1) Chronic hypertension: Status: Acute Problem details: reactive NST, reassuring testing Plan/Disposition OB Disposition: home
== END 2022-01-31 11:15 | disposition home or self-care (01) ==
LOC: LABOR 10:22 → OB 02-02 07:29
PROVIDERS: Family Provider Specialist; PCP Family Medicine; Referring Provider Family Medicine; Visit Provider Family Medicine
DX: O10.913 Unspecified pre-existing hypertension complicating pregnancy, third trimester (principal); Z3A.32 32 weeks gestation of pregnancy
CPT/HCPCS: 59025; G0378; G0379

== ENCOUNTER 2022-02-07 09:58 | Outpatient (CLI) | payer OTHER, SELFPAY ==
--- NOTE | 2022-02-07 10:36 | P.TNLD_ITS ---
Visit Information Visit Information Date of evaluation: 02/07/22 Primary OB Provider: Padmini Dunaway Reason for Evaluation: Yes non-stress test Comments/Additional reasons for admission: IUP, 33+0 weeks EGA Chronic HTN Vital Signs Vital Signs: 112/72 PFSH Medical History Chicken pox (~2000) Chronic hypertension Spontaneous vaginal delivery Surgical History Anesthesia [place] teeth removed (~2005) Family History Father Hyperlipidemia Hypertension Neuropathy of both feet Diabetes mellitus Mother Severe anemia Autoimmune disease Hypertension Brother SIDS (sudden infant syndrome) Sister History of bipolar disorder Depression Asthma Mental health problem Grandfather Rheumatoid arthritis Grandmother Macular degeneration Grandfather Hyperlipidemia Hypertension Grandmother Asthma History of bipolar disorder Atrial fibrillation Mental health problem Unknown Breast cancer Social History marital status: number of children: 1 household members: spouse and children lives independently: Yes housing: house pets and animals: Yes (Cats - aware toxoplasmosis) education level: college occupational status: employed current occupational exposures/hazards: No special chandrika needs: No seatbelt use: always water heater temp set < 120 deg: Yes working smoke detector in home: Yes fire extinguisher in home: Yes carbon monox detector in home: Yes do you feel safe at home: Yes Smoking Status: Never smoker second hand exposure: No alcohol intake: former substance use type: does not use during the past year weight has: increased > 10 lbs well-balanced diet: daily or most days daily servings fruits/ve-4 caffeine: Yes (200mg) Type(s) of exercise: walking frequency: 5-6 times per week Evaluation Evaluation Baseline heart rate: 125 Variability: Moderate (11-25) monitor accelerations: Present Monitor Decelerations: Absent Category of Tracing: Reactive Status: Category l Diagnosis, Plan/Disposition Final Diagnosis (1) Chronic hypertension: Status: Acute Problem details: reactive NST, reassuring testing (2) Encounter for supervision of other normal , unspecified trimester: Status: Acute Plan/Disposition Plan: Continue weekly antepartum testing OB Disposition: home
== END 2022-02-07 10:36 | disposition home or self-care (01) ==
LOC: OB 02-09 07:24
PROVIDERS: Family Provider Specialist; PCP Family Medicine; Referring Provider Family Medicine; Visit Provider Family Medicine
DX: O10.913 Unspecified pre-existing hypertension complicating pregnancy, third trimester (principal); Z3A.33 33 weeks gestation of pregnancy
CPT/HCPCS: 59025; G0378; G0379

== ENCOUNTER 2022-02-10 09:49 | Outpatient (CLI) | payer OTHER, SELFPAY | END 2022-02-10 10:30 | disposition home or self-care (01) | LOC: LABOR 10:02 → OB 02-13 12:19 | PROVIDERS: Family Provider Specialist; PCP Family Medicine; Referring Provider Family Medicine; Visit Provider Family Medicine | DX: O13.3 Gestational [pregnancy-induced] hypertension without significant proteinuria, third trimester (principal); Z3A.34 34 weeks gestation of pregnancy | CPT/HCPCS: 59025; G0378; G0379 ==

== ENCOUNTER 2022-02-14 09:46 | Outpatient (CLI) | payer OTHER, SELFPAY ==
--- NOTE | 2022-02-14 10:22 | PM.OBTRLD ---
Visit Information Visit Information Date of evaluation: 02/14/22 Primary OB Provider: Padmini Dunaway Reason for Evaluation: Yes non-stress test non-stress test reason: hypertension/pre-eclampsia Vital Signs Vital Signs: 36.3 blood pressure 112/72 heart rate 94 PFSH Medical History Chicken pox (~2000) Chronic hypertension Spontaneous vaginal delivery Surgical History Anesthesia [place] teeth removed (~2005) Family History Father Hyperlipidemia Hypertension Neuropathy of both feet Diabetes mellitus Mother Severe anemia Autoimmune disease Hypertension Brother SIDS (sudden infant syndrome) Sister History of bipolar disorder Depression Asthma Mental health problem Grandfather Rheumatoid arthritis Grandmother Macular degeneration Grandfather Hyperlipidemia Hypertension Grandmother Asthma History of bipolar disorder Atrial fibrillation Mental health problem Unknown Breast cancer Social History marital status: number of children: 1 household members: spouse and children lives independently: Yes housing: house pets and animals: Yes (Cats - aware toxoplasmosis) education level: college occupational status: employed current occupational exposures/hazards: No special chandrika needs: No seatbelt use: always water heater temp set < 120 deg: Yes working smoke detector in home: Yes fire extinguisher in home: Yes carbon monox detector in home: Yes do you feel safe at home: Yes Smoking Status: Never smoker second hand exposure: No alcohol intake: former substance use type: does not use during the past year weight has: increased > 10 lbs well-balanced diet: daily or most days daily servings fruits/ve-4 caffeine: Yes (200mg) Type(s) of exercise: walking frequency: 5-6 times per week Evaluation Evaluation Baseline heart rate: 135 Variability: Moderate (11-25) monitor accelerations: Present Monitor Decelerations: Absent Category of Tracing: Reactive Diagnosis, Plan/Disposition Final Diagnosis (1) Chronic hypertension: Status: Acute Problem details: reactive NST, reassuring testing (2) 34 weeks gestation of : Status: Acute Plan/Disposition Plan: 36-year-old at 34 weeks gestation complicated hypertension. Blood pressure well controlled with labetalol. NST reactive. Continue twice weekly NST and weekly YOLY. OB Disposition: home
== END 2022-02-14 10:37 | disposition home or self-care (01) ==
LOC: LABOR 10:33 → OB 02-16 08:14
PROVIDERS: Family Provider Specialist; PCP Family Medicine; Referring Provider Family Medicine; Visit Provider Family Medicine
DX: O10.913 Unspecified pre-existing hypertension complicating pregnancy, third trimester (principal); Z3A.34 34 weeks gestation of pregnancy
CPT/HCPCS: 59025; G0378; G0379

== ENCOUNTER → 2022-02-17 07:58 | Outpatient (CLI) | payer OTHER, SELFPAY ==
--- NOTE | 2022-02-17 07:59 | DI.US.S_ITS ---
PROCEDURE: US OB LIMITED INDICATIONS: YOLY OUTSIDE/PRIOR DATING DATA: Last menstrual period (LMP): 06/21/2021 LMP-based estimated date of delivery (FLOYD): 03/28/2022 First dating scan (date and location): 08/26/2021 Estimated date of delivery (FLOYD) from first dating scan: 03/29/2022 TECHNIQUE: Real-time scanning was performed of the fetus, with image documentation. Endovaginal scanning: Not performed COMPARISON: 08/26/2021 FINDINGS: A single living intrauterine gestation is present. Presentation: Breech Placenta: Fundal without previa Amniotic fluid index: 8.3 cm heart rate: 149 beats per minute Maternal cervical canal: 5.3 cm Working gestational age: 34 weeks and 2 days IMPRESSION: Working gestational age of living intrauterine at 34 weeks and 2 days. Amniotic fluid index is 8.3. Dictated by: Isrrael Rosario M.D. on 02/17/2022 at 9:51 Approved by: Isrrael Rosario M.D. on 02/17/2022 at 9:53
== END ==
PROVIDERS: Family Provider Specialist; PCP Family Medicine; Referring Provider Family Medicine; Visit Provider Family Medicine
DX: O16.3 Unspecified maternal hypertension, third trimester (principal); Z3A.34 34 weeks gestation of pregnancy
CPT/HCPCS: 76815

== ENCOUNTER 2022-02-17 08:38 | Outpatient (CLI) | payer OTHER, SELFPAY ==
--- NOTE | 2022-02-17 09:28 | P.TNLD_ITS ---
Visit Information Visit Information Date of evaluation: 02/17/22 Primary OB Provider: Padmini Dunaway Reason for Evaluation: Yes non-stress test non-stress test reason: hypertension/pre-eclampsia Vital Signs Vital Signs: Temperature 36.2? blood pressure 114/76 heart rate 92 PFSH Medical History Chicken pox (~2000) Chronic hypertension Spontaneous vaginal delivery Surgical History Anesthesia [place] teeth removed (~2005) Family History Father Hyperlipidemia Hypertension Neuropathy of both feet Diabetes mellitus Mother Severe anemia Autoimmune disease Hypertension Brother SIDS (sudden syndrome) Sister History of bipolar disorder Depression Asthma Mental health problem Grandfather Rheumatoid arthritis Grandmother Macular degeneration Grandfather Hyperlipidemia Hypertension Grandmother Asthma History of bipolar disorder Atrial fibrillation Mental health problem Unknown Breast cancer Social History marital status: number of children: 1 household members: spouse and children lives independently: Yes housing: house pets and animals: Yes (Cats - aware toxoplasmosis) education level: college occupational status: employed current occupational exposures/hazards: No special chandrika needs: No seatbelt use: always water heater temp set < 120 deg: Yes working smoke detector in home: Yes fire extinguisher in home: Yes carbon monox detector in home: Yes do you feel safe at home: Yes Smoking Status: Never smoker second hand exposure: No alcohol intake: former substance use type: does not use during the past year weight has: increased > 10 lbs well-balanced diet: daily or most days daily servings fruits/ve-4 caffeine: Yes (200mg) Type(s) of exercise: walking frequency: 5-6 times per week Evaluation Evaluation Baseline heart rate: 140 Variability: Moderate (11-25) monitor accelerations: Present Monitor Decelerations: Absent Category of Tracing: Reactive Diagnosis, Plan/Disposition Final Diagnosis (1) Chronic hypertension: Status: Acute Problem details: reactive NST, reassuring testing (2) 34 weeks gestation of : Status: Acute Plan/Disposition Plan: 36-year-old at 34+3 weeks gestation complicated hypertension.? Blood pressure well controlled with labetalol.? NST reactive.? YOLY 8.3. Continue twice weekly NST and weekly YOLY. OB Disposition: home
== END 2022-02-17 09:35 | disposition home or self-care (01) ==
LOC: LABOR 08:48 → OB 02-21 14:09
PROVIDERS: Family Provider Specialist; PCP Family Medicine; Referring Provider Family Medicine; Visit Provider Family Medicine
DX: O16.3 Unspecified maternal hypertension, third trimester (principal); Z3A.34 34 weeks gestation of pregnancy
CPT/HCPCS: 59025; 76815; G0378; G0379

== ENCOUNTER 2022-02-21 09:49 | Outpatient (CLI) | payer OTHER, SELFPAY ==
--- NOTE | 2022-02-21 10:26 | PM.OBTRLD ---
Visit Information Visit Information Date of evaluation: 02/21/22 Primary OB Provider: Padmini Dunaway Reason for Evaluation: Yes non-stress test non-stress test reason: hypertension/pre-eclampsia Vital Signs Vital Signs: T 36.2 BP 121/72 P 86 PFSH Medical History Chicken pox (~2000) Chronic hypertension Spontaneous vaginal delivery Surgical History Anesthesia [place] teeth removed (~2005) Family History Father Hyperlipidemia Hypertension Neuropathy of both feet Diabetes mellitus Mother Severe anemia Autoimmune disease Hypertension Brother SIDS (sudden syndrome) Sister History of bipolar disorder Depression Asthma Mental health problem Grandfather Rheumatoid arthritis Grandmother Macular degeneration Grandfather Hyperlipidemia Hypertension Grandmother Asthma History of bipolar disorder Atrial fibrillation Mental health problem Unknown Breast cancer Social History marital status: number of children: 1 household members: spouse and children lives independently: Yes housing: house pets and animals: Yes (Cats - aware toxoplasmosis) education level: college occupational status: employed current occupational exposures/hazards: No special chandrika needs: No seatbelt use: always water heater temp set < 120 deg: Yes working smoke detector in home: Yes fire extinguisher in home: Yes carbon monox detector in home: Yes do you feel safe at home: Yes Smoking Status: Never smoker second hand exposure: No alcohol intake: former substance use type: does not use during the past year weight has: increased > 10 lbs well-balanced diet: daily or most days daily servings fruits/ve-4 caffeine: Yes (200mg) Type(s) of exercise: walking frequency: 5-6 times per week Evaluation Evaluation Baseline heart rate: 130 Variability: Moderate (11-25) monitor accelerations: Present Monitor Decelerations: Absent Category of Tracing: Reactive Diagnosis, Plan/Disposition Final Diagnosis (1) Chronic hypertension: Status: Acute Problem details: reactive NST, reassuring testing (2) 35 weeks gestation of : Status: Acute Plan/Disposition Plan: 36-year-old at 35 weeks gestation complicated hypertension.? Blood pressure well controlled with labetalol.? NST reactive.? Continue twice weekly NST and weekly YOLY OB Disposition: home
== END 2022-02-21 10:31 | disposition home or self-care (01) ==
LOC: LABOR 10:10 → OB 03-23 11:37
PROVIDERS: Family Provider Specialist; PCP Family Medicine; Referring Provider Family Medicine; Visit Provider Family Medicine
DX: O10.913 Unspecified pre-existing hypertension complicating pregnancy, third trimester (principal); Z3A.35 35 weeks gestation of pregnancy
CPT/HCPCS: 59025; G0378; G0379

== ENCOUNTER → 2022-02-24 08:11 | Outpatient (CLI) | payer OTHER, SELFPAY ==
--- NOTE | 2022-02-24 08:12 | DI.US.S_ITS ---
PROCEDURE: US OB LIMITED INDICATIONS: YOLY; HTN OUTSIDE/PRIOR DATING DATA: Last menstrual period (LMP): June 21, 2021. LMP-based estimated date of delivery (FLOYD): March 28, 2022. First dating scan (date and location): August 26, 2021. Estimated date of delivery (FLOYD) from first dating scan: March 29, 2022. The calculations are made using the ultrasound FLOYD of March 29, 2022. TECHNIQUE: Real-time scanning was performed of the fetus, with image documentation. Endovaginal scanning: Not performed COMPARISON: [facility], OB LIMITED, 02/17/2022, 8:23. FINDINGS: A single living intrauterine gestation is present. Presentation: Breech. Placenta: Placental position is left posterior fundal, without previa. Amniotic fluid index: 13 cm, normal range is 5-24 cm. Single deepest vertical pocket is 4.9 cm. heart rate: 155 beats per minute. Maternal cervical canal: Maternal cervical length not well visualized secondary to advanced gestational age. Estimated gestational age from initial scan: 35 weeks and 2 days. IMPRESSION: Single living intrauterine gestation with estimated gestational age of approximately 35 weeks and 2 days. Four-quadrant YOLY measures 13.0 cm with largest vertical pocket measuring 4.9 cm. Dictated by: Familia Marino M.D. on 02/24/2022 at 12:01 Approved by: Familia Marino M.D. on 02/24/2022 at 12:04
== END ==
PROVIDERS: Family Provider Specialist; PCP Family Medicine; Referring Provider Family Medicine; Visit Provider Family Medicine
DX: I10 Essential (primary) hypertension (principal); Z3A.35 35 weeks gestation of pregnancy
CPT/HCPCS: 76815

== ENCOUNTER 2022-02-24 08:34 | Outpatient (CLI) | payer OTHER, SELFPAY ==
--- NOTE | 2022-02-24 10:11 | PM.OBTRLD ---
Visit Information Visit Information Date of evaluation: 02/24/22 Primary OB Provider: Padmini Dunaway Reason for Evaluation: Yes non-stress test non-stress test reason: hypertension/pre-eclampsia Vital Signs Vital Signs: Temperature 36.4? blood pressure 116/75 heart rate 88 PFSH Medical History Chicken pox (~2000) Chronic hypertension Spontaneous vaginal delivery Surgical History Anesthesia [place] teeth removed (~2005) Family History Father Hyperlipidemia Hypertension Neuropathy of both feet Diabetes mellitus Mother Severe anemia Autoimmune disease Hypertension Brother SIDS (sudden syndrome) Sister History of bipolar disorder Depression Asthma Mental health problem Grandfather Rheumatoid arthritis Grandmother Macular degeneration Grandfather Hyperlipidemia Hypertension Grandmother Asthma History of bipolar disorder Atrial fibrillation Mental health problem Unknown Breast cancer Social History marital status: number of children: 1 household members: spouse and children lives independently: Yes housing: house pets and animals: Yes (Cats - aware toxoplasmosis) education level: college occupational status: employed current occupational exposures/hazards: No special chandrika needs: No seatbelt use: always water heater temp set < 120 deg: Yes working smoke detector in home: Yes fire extinguisher in home: Yes carbon monox detector in home: Yes do you feel safe at home: Yes Smoking Status: Never smoker second hand exposure: No alcohol intake: former substance use type: does not use during the past year weight has: increased > 10 lbs well-balanced diet: daily or most days daily servings fruits/ve-4 caffeine: Yes (200mg) Type(s) of exercise: walking frequency: 5-6 times per week Evaluation Evaluation Baseline heart rate: 130 Variability: Moderate (11-25) monitor accelerations: Present Monitor Decelerations: Absent Uterine Contraction Intensity: Mild Category of Tracing: Reactive Diagnosis, Plan/Disposition Final Diagnosis (1) 35 weeks gestation of : Status: Acute (2) Chronic hypertension: Status: Acute Problem details: reactive NST, reassuring testing Plan/Disposition Plan: 36-year-old at 35+3 weeks gestation with chronic hypertension on labetalol. Blood pressure well controlled.? NST reactive and YOLY 13. Fetus still breech.? Continue twice weekly NST and weekly YOLY. OB Disposition: home
== END 2022-02-24 10:15 | disposition home or self-care (01) ==
LOC: LABOR 09:11 → OB 02-27 09:36
PROVIDERS: Family Provider Specialist; PCP Family Medicine; Referring Provider Family Medicine; Visit Provider Family Medicine
DX: O13.3 Gestational [pregnancy-induced] hypertension without significant proteinuria, third trimester (principal); Z3A.35 35 weeks gestation of pregnancy
CPT/HCPCS: 59025; 76815; G0378; G0379

== ENCOUNTER 2022-02-28 09:47 | Outpatient (CLI) | payer OTHER, SELFPAY ==
--- NOTE | 2022-02-28 10:27 | P.TNLD_ITS ---
Visit Information Visit Information Date of evaluation: 02/28/22 Primary OB Provider: Padmini Dunaway Reason for Evaluation: Yes non-stress test non-stress test reason: hypertension/pre-eclampsia Vital Signs Vital Signs: Temperature 97.1? blood pressure 112/67 [facility] Medical History Chicken pox (~2000) Chronic hypertension Spontaneous vaginal delivery Surgical History Anesthesia [place] teeth removed (~2005) Family History Father Hyperlipidemia Hypertension Neuropathy of both feet Diabetes mellitus Mother Severe anemia Autoimmune disease Hypertension Brother SIDS (sudden syndrome) Sister History of bipolar disorder Depression Asthma Mental health problem Grandfather Rheumatoid arthritis Grandmother Macular degeneration Grandfather Hyperlipidemia Hypertension Grandmother Asthma History of bipolar disorder Atrial fibrillation Mental health problem Unknown Breast cancer Social History marital status: number of children: 1 household members: spouse and children lives independently: Yes housing: house pets and animals: Yes (Cats - aware toxoplasmosis) education level: college occupational status: employed current occupational exposures/hazards: No special chandrika needs: No seatbelt use: always water heater temp set < 120 deg: Yes working smoke detector in home: Yes fire extinguisher in home: Yes carbon monox detector in home: Yes do you feel safe at home: Yes Smoking Status: Never smoker second hand exposure: No alcohol intake: former substance use type: does not use during the past year weight has: increased > 10 lbs well-balanced diet: daily or most days daily servings fruits/ve-4 caffeine: Yes (200mg) Type(s) of exercise: walking frequency: 5-6 times per week Evaluation Evaluation Baseline heart rate: 130 Variability: Moderate (11-25) monitor accelerations: Present Monitor Decelerations: Absent Category of Tracing: Reactive Diagnosis, Plan/Disposition Final Diagnosis (1) 35 weeks gestation of : Status: Deleted (2) Chronic hypertension: Status: Acute Problem details: reactive NST, reassuring testing (3) 36 weeks gestation of : Status: Acute Plan/Disposition Plan: 36-year-old at 36 weeks gestation with chronic hypertension on labetalol.? Blood pressure well controlled.? NST reactive. Continue twice weekly NST and weekly YOLY. OB Disposition: home
== END 2022-02-28 10:28 | disposition home or self-care (01) ==
LOC: LABOR 10:17 → OB 03-03 08:32
PROVIDERS: Family Provider Specialist; PCP Family Medicine; Referring Provider Family Medicine; Visit Provider Family Medicine
DX: O10.913 Unspecified pre-existing hypertension complicating pregnancy, third trimester (principal); Z3A.36 36 weeks gestation of pregnancy
CPT/HCPCS: 59025; G0378; G0379

== ENCOUNTER 2022-03-03 08:49 | Outpatient (CLI) | payer OTHER, SELFPAY ==
--- NOTE | 2022-03-03 09:29 | PM.OBTRLD ---
Visit Information Visit Information Date of evaluation: 03/03/22 Primary OB Provider: Padmini Dunaway On-call OB Provider: Padmini Dunaway Reason for Evaluation: Yes non-stress test Vital Signs Vital Signs: Temperature 36.4? blood pressure 113/70 heart rate 90 PFSH Medical History Chicken pox (~2000) Chronic hypertension Spontaneous vaginal delivery Surgical History Anesthesia [place] teeth removed (~2005) Family History Father Hyperlipidemia Hypertension Neuropathy of both feet Diabetes mellitus Mother Severe anemia Autoimmune disease Hypertension Brother SIDS (sudden syndrome) Sister History of bipolar disorder Depression Asthma Mental health problem Grandfather Rheumatoid arthritis Grandmother Macular degeneration Grandfather Hyperlipidemia Hypertension Grandmother Asthma History of bipolar disorder Atrial fibrillation Mental health problem Unknown Breast cancer Social History marital status: number of children: 1 household members: spouse and children lives independently: Yes housing: house pets and animals: Yes (Cats - aware toxoplasmosis) education level: college occupational status: employed current occupational exposures/hazards: No special chnadrika needs: No seatbelt use: always water heater temp set < 120 deg: Yes working smoke detector in home: Yes fire extinguisher in home: Yes carbon monox detector in home: Yes do you feel safe at home: Yes Smoking Status: Never smoker second hand exposure: No alcohol intake: former substance use type: does not use during the past year weight has: increased > 10 lbs well-balanced diet: daily or most days daily servings fruits/ve-4 caffeine: Yes (200mg) Type(s) of exercise: walking frequency: 5-6 times per week Evaluation Evaluation Baseline heart rate: 140 Variability: Moderate (11-25) monitor accelerations: Present Monitor Decelerations: Absent Category of Tracing: Reactive Diagnosis, Plan/Disposition Final Diagnosis (1) 36 weeks gestation of : Status: Acute (2) Chronic hypertension: Status: Acute Problem details: reactive NST, reassuring testing Plan/Disposition Plan: 36-year-old 36 weeks and 3 days gestation here for NST due to chronic hypertension. NST reactive. Blood pressure well controlled. Continue twice weekly NST and weekly YOLY. YOLY was 7.4 at M yesterday. is breech. She will follow-up in clinic immediately after the NST to discuss external version. OB Disposition: home
== END 2022-03-03 09:35 | disposition home or self-care (01) ==
LOC: LABOR 10:07 → OB 03-06 09:20
PROVIDERS: Family Provider Specialist; PCP Family Medicine; Referring Provider Family Medicine; Visit Provider Family Medicine
DX: O10.913 Unspecified pre-existing hypertension complicating pregnancy, third trimester (principal); Z3A.36 36 weeks gestation of pregnancy; Z36.85 Encounter for antenatal screening for Streptococcus B
CPT/HCPCS: 59025; 87653; G0378; G0379

== ENCOUNTER → 2022-03-03 09:54 | Outpatient (CLI) | payer OTHER, SELFPAY ==
[2022-03-04 13:20] LABS: Strep Grp B PCR NEG for Grp B Strep
== END ==
PROVIDERS: Family Provider Specialist; PCP Family Medicine; Visit Provider Family Medicine
DX: Z36.85 Encounter for antenatal screening for Streptococcus B (principal); Z3A.36 36 weeks gestation of pregnancy
CPT/HCPCS: 87653

== ENCOUNTER 2022-03-07 09:49 | Outpatient (CLI) | payer OTHER, SELFPAY ==
--- NOTE | 2022-03-07 10:28 | PM.OBTRLD ---
Visit Information Visit Information Date of evaluation: 03/07/22 Primary OB Provider: Padmini Dunaway Reason for Evaluation: Yes non-stress test non-stress test reason: hypertension/pre-eclampsia Vital Signs Vital Signs: T 36.3 BP 115/72 P 92 PFSH Medical History Chicken pox (~2000) Chronic hypertension Spontaneous vaginal delivery Surgical History Anesthesia [place] teeth removed (~2005) Family History Father Hyperlipidemia Hypertension Neuropathy of both feet Diabetes mellitus Mother Severe anemia Autoimmune disease Hypertension Brother SIDS (sudden syndrome) Sister History of bipolar disorder Depression Asthma Mental health problem Grandfather Rheumatoid arthritis Grandmother Macular degeneration Grandfather Hyperlipidemia Hypertension Grandmother Asthma History of bipolar disorder Atrial fibrillation Mental health problem Unknown Breast cancer Social History marital status: number of children: 1 household members: spouse and children lives independently: Yes housing: house pets and animals: Yes (Cats - aware toxoplasmosis) education level: college occupational status: employed current occupational exposures/hazards: No special chandrika needs: No seatbelt use: always water heater temp set < 120 deg: Yes working smoke detector in home: Yes fire extinguisher in home: Yes carbon monox detector in home: Yes do you feel safe at home: Yes Smoking Status: Never smoker second hand exposure: No alcohol intake: former substance use type: does not use during the past year weight has: increased > 10 lbs well-balanced diet: daily or most days daily servings fruits/ve-4 caffeine: Yes (200mg) Type(s) of exercise: walking frequency: 5-6 times per week Evaluation Evaluation Baseline heart rate: 130 Variability: Moderate (11-25) monitor accelerations: Present Monitor Decelerations: Absent Uterine Contraction Intensity: Mild Category of Tracing: Reactive Diagnosis, Plan/Disposition Final Diagnosis (1) 37 weeks gestation of : Status: Acute (2) Chronic hypertension: Status: Acute Problem details: reactive NST, reassuring testing Plan/Disposition Plan: 36-year-old 37 weeks gestation here for NST due to chronic hypertension.? NST reactive.? Blood pressure well controlled.? Continue twice weekly NST and weekly YOLY.? Scheduled for external cephalic version later this week. OB Disposition: home
== END 2022-03-07 10:37 | disposition home or self-care (01) ==
LOC: LABOR 10:21 → OB 03-09 17:07
PROVIDERS: Family Provider Specialist; PCP Family Medicine; Referring Provider Family Medicine; Visit Provider Family Medicine
DX: O10.913 Unspecified pre-existing hypertension complicating pregnancy, third trimester (principal); Z3A.37 37 weeks gestation of pregnancy
CPT/HCPCS: 59025; G0378; G0379

== ENCOUNTER 2022-03-10 05:56 | Observation (INO) | payer OTHER, SELFPAY ==
[2022-03-10 06:58] LABS: COVID19 -Nasal RAPID Negative (Negative)
[2022-03-10 07:03] LABS: Add Manual Diff / Slide Review NO; Basophils Absolute Auto 0 /uL (0-100); Basophils Percent Auto 0.2 % (0-2); Eosinophils Absolute Auto 200 /uL (0-450); Eosinophils Percent Auto 2.7 % (2-4); Hematocrit 28.8 % (36-46); Hemoglobin 9.8 g/dL (12.0-16.0); Lymphocytes Absolute Auto 1800 /uL (1100-4500); Lymphocytes Percent Auto 25.2 % (25-40); Mean Corpuscular HGB Conc 34.1 % (30-36); Mean Corpuscular Hemoglobin 30.8 PG (26-34); Mean Corpuscular Volume 90.2 fL (80-100); Monocytes Absolute Auto 500 /uL (0-900); Monocytes Percent Auto 6.3 % (3-14); Neutrophils Absolute Auto 4800 /uL (1500-7000); Neutrophils Percent Auto 65.6 % (50-75); Platelet Count 216 X10^3/uL (150-400); Red Blood Cell Count 3.19 X10^6/uL (4.0-5.2); Red Cell Distribution Width 13.2 % (11.6-14.8); White Blood Cell Count 7.3 X10^3/uL (4.5-11.0)
[2022-03-10] MEDS: TERBUTALINE 1 MG/ML VIAL 0.25 MG SUBCUT (07:43)
--- NOTE | 2022-03-10 10:52 | PM.OBTRLD ---
Visit Information Visit Information Date of evaluation: 03/10/22 Primary OB Provider: Padmini Dunaway On-call OB Provider: Erika Denson Reason for Evaluation: Yes non-stress test non-stress test reason: other (External cephalic version) Vital Signs Vital Signs: Temperature 35.3 blood pressure 140/88 pulse 90 Temperature 36.6 blood pressure 132/84 pulse 88 PFSH Medical History Chicken pox (~2000) Chronic hypertension Spontaneous vaginal delivery Surgical History Anesthesia [place] teeth removed (~2005) Family History Father Hyperlipidemia Hypertension Neuropathy of both feet Diabetes mellitus Mother Severe anemia Autoimmune disease Hypertension Brother SIDS (sudden syndrome) Sister History of bipolar disorder Depression Asthma Mental health problem Grandfather Rheumatoid arthritis Grandmother Macular degeneration Grandfather Hyperlipidemia Hypertension Grandmother Asthma History of bipolar disorder Atrial fibrillation Mental health problem Unknown Breast cancer Social History marital status: number of children: 1 household members: spouse and children lives independently: Yes housing: house pets and animals: Yes (Cats - aware toxoplasmosis) education level: college occupational status: employed current occupational exposures/hazards: No special chandrika needs: No seatbelt use: always water heater temp set < 120 deg: Yes working smoke detector in home: Yes fire extinguisher in home: Yes carbon monox detector in home: Yes do you feel safe at home: Yes Smoking Status: Never smoker second hand exposure: No alcohol intake: former substance use type: does not use during the past year weight has: increased > 10 lbs well-balanced diet: daily or most days daily servings fruits/ve-4 caffeine: Yes (200mg) Type(s) of exercise: walking frequency: 5-6 times per week Objective Labs Result Diagrams: 03/10/22 06:30 Labs: Laboratory Results - last 24 hr 03/10/22 03/10/22 03/10/22 06:30 06:30 06:30 WBC 7.3 RBC 3.19 L Hgb 9.8 L Hct 28.8 L MCV 90.2 MCH 30.8 MCHC 34.1 RDW 13.2 Plt Count 216 Neut % (Auto) 65.6 Lymph % (Auto) 25.2 [place] % (Auto) 6.3 Eos % (Auto) 2.7 Baso % (Auto) 0.2 Neut # (Auto) 4800 Lymph # (Auto) 1800 [place] # (Auto) 500 Eos # (Auto) 200 Baso # (Auto) 0 SARS-CoV-2 (PCR) Negative Blood Type A Positive Antibody Screen Negative Evaluation Evaluation Baseline heart rate: 130 Variability: Moderate (11-25) monitor accelerations: Present Monitor Decelerations: Absent Category of Tracing: Reactive Diagnosis, Plan/Disposition Final Diagnosis (1) Successful external cephalic version: Status: Acute (2) 37 weeks gestation of : Status: Acute (3) Chronic hypertension: Status: Acute Problem details: reactive NST, reassuring testing Plan/Disposition Plan: 36-year-old at 37 weeks and 3 days here for external cephalic version with Dr. Denson and Dr. Dunaway. NST reactive. Discussed risk of rupture of membranes, bleeding and distress necessitating emergency . Patient voiced her understanding and consent signed. Patient was given terbutaline IM. Dr. Denson then manually attempted to turn the baby in the direction of a forward roll with assistance by Dr. Dunaway x3 though remained breech. was checked with the ultrasound after each attempt and heart rate reassuring. After discussion, the decision was made to try turning the baby in the opposite direction. This was ultimately successful after placing the patient in Trendelenburg. Patient tolerated procedure very well. Confirmed vertex with ultrasound. heart rate reassuring on ultrasound and EFM placed on the patient. She will be given an abdominal binder. She will be monitored over the next hour or 2, and if reassuring, discharge home. Scheduled for induction 03/21. Will be seen in clinic next week. OB Disposition: home
== END 2022-03-10 09:15 | disposition home or self-care (01) ==
PROVIDERS: Admitting Provider Family Medicine; Family Provider Specialist; PCP Family Medicine; Referring Provider Family Medicine; Visit Provider Family Medicine
DX: O32.1XX0 Maternal care for breech presentation, not applicable or unspecified (principal); O10.913 Unspecified pre-existing hypertension complicating pregnancy, third trimester; Z3A.37 37 weeks gestation of pregnancy; Z20.822 Contact with and (suspected) exposure to COVID-19
CPT/HCPCS: 59025; 59050; 59412; 76815; 85025; 86850; 86900; 86901; 87635; 96372; C9803; G0378; G0379

== ENCOUNTER 2022-03-14 09:42 | Outpatient (CLI) | payer OTHER, SELFPAY ==
--- NOTE | 2022-03-14 10:15 | P.TNLD_ITS ---
Visit Information Visit Information Date of evaluation: 03/14/22 Primary OB Provider: Padmini Dunaway Reason for Evaluation: Yes non-stress test non-stress test reason: hypertension/pre-eclampsia Vital Signs Vital Signs: Temperature 36.3? blood pressure 132/81 heart rate 84 PFSH Medical History Chicken pox (~2000) Chronic hypertension Spontaneous vaginal delivery Surgical History Anesthesia [place] teeth removed (~2005) Family History Father Hyperlipidemia Hypertension Neuropathy of both feet Diabetes mellitus Mother Severe anemia Autoimmune disease Hypertension Brother SIDS (sudden syndrome) Sister History of bipolar disorder Depression Asthma Mental health problem Grandfather Rheumatoid arthritis Grandmother Macular degeneration Grandfather Hyperlipidemia Hypertension Grandmother Asthma History of bipolar disorder Atrial fibrillation Mental health problem Unknown Breast cancer Social History marital status: number of children: 1 household members: spouse and children lives independently: Yes housing: house pets and animals: Yes (Cats - aware toxoplasmosis) education level: college occupational status: employed current occupational exposures/hazards: No special chandrika needs: No seatbelt use: always water heater temp set < 120 deg: Yes working smoke detector in home: Yes fire extinguisher in home: Yes carbon monox detector in home: Yes do you feel safe at home: Yes Smoking Status: Never smoker second hand exposure: No alcohol intake: former substance use type: does not use during the past year weight has: increased > 10 lbs well-balanced diet: daily or most days daily servings fruits/ve-4 caffeine: Yes (200mg) Type(s) of exercise: walking frequency: 5-6 times per week Evaluation Evaluation Baseline heart rate: 130 Variability: Moderate (11-25) monitor accelerations: Present Monitor Decelerations: Absent Category of Tracing: Reactive Diagnosis, Plan/Disposition Final Diagnosis (1) 38 weeks gestation of : Status: Acute (2) Chronic hypertension: Status: Acute Problem details: reactive NST, reassuring testing Plan/Disposition Plan: 36-year-old at 38 weeks gestation with complicated by chronic h ypertension. Blood pressure well controlled with labetalol. NST reactive. Will continue twice weekly NST in weekly YOLY. She is scheduled for induction 03/21/22. OB Disposition: home
== END 2022-03-14 10:18 | disposition home or self-care (01) ==
LOC: OB 03-23 11:37
PROVIDERS: Family Provider Specialist; PCP Family Medicine; Referring Provider Family Medicine; Visit Provider Family Medicine
DX: O10.913 Unspecified pre-existing hypertension complicating pregnancy, third trimester (principal); Z3A.38 38 weeks gestation of pregnancy
CPT/HCPCS: 59025; G0378; G0379

== ENCOUNTER → 2022-03-15 15:17 | Outpatient (CLI) | payer OTHER, SELFPAY ==
--- NOTE | 2022-03-15 15:18 | DI.US.S_ITS ---
PROCEDURE: US OB LIMITED INDICATIONS: YOLY, Chronic HTN OUTSIDE/PRIOR DATING DATA: Last menstrual period (LMP): June 21, 2021. LMP-based estimated date of delivery (FLODY): March 28, 2022. First dating scan (date and location): August 26, 2021. Estimated date of delivery (FLOYD) from first dating scan: March 29, 2022. TECHNIQUE: Real-time scanning was performed of the fetus, with image documentation and biometric measurements. COMPARISON: [facility], OB LIMITED, 02/24/2022, 8:16. FINDINGS: General: A single living intrauterine gestation is present. Presentation: Cephalic. Placenta: Placental position is fundal. Amniotic fluid index: 6.6 cm, normal range is 5-24 cm. Single deepest vertical pocket is 3.7 cm. heart rate: 147 beats per minute. Maternal cervical canal: Not visualized biometrics: Clinically estimated gestational age: 38 weeks 0 days Other: Not applicable. IMPRESSION: Single live intrauterine gestation with YOLY of 6.6 cm. We strive to produce accurate, complete, and clear reports of imaging services. To assist us in improving patient care, this report was composed using standard report templates and voice recognition software. Therefore, it may contain abnormal punctuation, insertions and/or omissions. Occasional wrong-word or sound-alike substitutions may occur. Though we review the report and make efforts to correct it, we do recommend that the report be read carefully in proper context to recognize any text inaccuracies. Dictated by: Candelaria Herrera M.D. on 03/16/2022 at 12:40 Approved by: Candelaria Herrera M.D. on 03/16/2022 at 12:42
== END ==
PROVIDERS: Family Provider Specialist; PCP Family Medicine; Referring Provider Family Medicine; Visit Provider Family Medicine
DX: O16.3 Unspecified maternal hypertension, third trimester (principal); Z3A.38 38 weeks gestation of pregnancy
CPT/HCPCS: 76815

== ENCOUNTER 2022-03-17 08:41 | Outpatient (CLI) | payer OTHER, SELFPAY ==
--- NOTE | 2022-03-17 09:33 | PM.OBTRLD ---
Visit Information Visit Information Date of evaluation: 03/17/22 Primary OB Provider: Padmini Dunaway Reason for Evaluation: Yes non-stress test non-stress test reason: hypertension/pre-eclampsia Vital Signs Vital Signs: Temperature 36.0? blood pressure 121/80 heart rate 88 PFSH Medical History Chicken pox (~2000) Chronic hypertension Spontaneous vaginal delivery Surgical History Anesthesia [place] teeth removed (~2005) Family History Father Hyperlipidemia Hypertension Neuropathy of both feet Diabetes mellitus Mother Severe anemia Autoimmune disease Hypertension Brother SIDS (sudden syndrome) Sister History of bipolar disorder Depression Asthma Mental health problem Grandfather Rheumatoid arthritis Grandmother Macular degeneration Grandfather Hyperlipidemia Hypertension Grandmother Asthma History of bipolar disorder Atrial fibrillation Mental health problem Unknown Breast cancer Social History marital status: number of children: 1 household members: spouse and children lives independently: Yes housing: house pets and animals: Yes (Cats - aware toxoplasmosis) education level: college occupational status: employed current occupational exposures/hazards: No special chandrika needs: No seatbelt use: always water heater temp set < 120 deg: Yes working smoke detector in home: Yes fire extinguisher in home: Yes carbon monox detector in home: Yes do you feel safe at home: Yes Smoking Status: Never smoker second hand exposure: No alcohol intake: former substance use type: does not use during the past year weight has: increased > 10 lbs well-balanced diet: daily or most days daily servings fruits/ve-4 caffeine: Yes (200mg) Type(s) of exercise: walking frequency: 5-6 times per week Evaluation Evaluation Baseline heart rate: 130 Variability: Moderate (11-25) monitor accelerations: Present Monitor Decelerations: Absent Category of Tracing: Reactive Diagnosis, Plan/Disposition Final Diagnosis (1) 38 weeks gestation of : Status: Acute (2) Chronic hypertension: Status: Acute Problem details: reactive NST, reassuring testing Plan/Disposition Plan: 36-year-old at 38 weeks and 3 days gestation with complicated by palate, chronic hypertension and advanced maternal age. NST reactive. YOLY was 6.6 this week. is now cephalic after external cephalic version. She is scheduled for induction on 03/21/22. OB Disposition: home
== END 2022-03-17 09:33 | disposition home or self-care (01) ==
LOC: LABOR 09:08 → OB 03-20 17:13
PROVIDERS: Family Provider Specialist; PCP Family Medicine; Referring Provider Family Medicine; Visit Provider Family Medicine
DX: O10.913 Unspecified pre-existing hypertension complicating pregnancy, third trimester (principal); Z3A.38 38 weeks gestation of pregnancy
CPT/HCPCS: 59025; G0378; G0379

== ENCOUNTER 2022-03-21 07:02 | Inpatient (IN) | payer OTHER, SELFPAY ==
--- NOTE | 2022-03-21 07:28 | PM.OBHP.IH.1 ---
OB HPI Date/Time Date of admission: 03/21/22 Date Patient Seen: 03/21/22 History of Present Condition Chief complaint: INDUCTION FLOYD Calculator Estimated Delivery Date Method Current WG Current Estimate 03/28/22 LMP (Certain) 39w 0d Other Estimates 03/29/22 Ultrasound #1 38w 6d Estimated Gestational Age (weeks): 39 : 2 Para: 1 Narrative: 36-year-old at 39 weeks gestation here for induction for chronic hypertension well-controlled with labetalol and advanced maternal age. 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 The patient and her consulted with craniofacial surgery at [facility] and will be referred after delivery. She underwent external cephalic version at 37 weeks which was successful. otherwise uncomplicated. care: good care, initiated at week # (11), number of visits (10) and pounds weight gain (29) Dating criteria OB: LMP confirmed by 1st trimester US Ultrasounds: normal mid trimester US and abnormal US findings (Small midline cleft palate on MFM ultrasound) Obstetrical complications: other (Chronic hypertension) Medical complications OB: none Indications Indication for induction OB: gestational HTN/pre-eclampsia Preadmission Labs Last OB Lab Results: Blood Type A Positive 03/21/22 08:00 Antibody Screen Negative 03/21/22 08:00 Hematocrit 30.8 % (36-46) L 03/21/22 08:00 Hemoglobin 10.3 g/dL (12.0-16.0) L 03/21/22 08:00 Hepatitis B Surface Antigen Negative s/c (NEGATIVE) 08/26/21 11:00 Hepatitis C Antibody Negative s/c (NEGATIVE) 08/26/21 11:00 Rubella Antibody 89.5 IU/mL (>15) 08/26/21 11:00 Varicella-Zoster IgG Antibody 1670 index (Immune >165) 08/26/21 11:00 Glucose 1 Hour 119 mg/dL (76-139) 12/31/21 09:42 Group B Streptococcus (PCR) Neg for grp b strep 03/03/22 09:54 -: Urine: negative -: PAP smear: Normal Genetic Screens: Cell-free DNA: Normal External Labs -: Urine: negative Prior (ies) Past Pregnancies Del. Date GA/Weeks Labor Lgth Wt Sex Route Outcome Anesthesia Place Delv Breastfeed Preg Comp Name 12/06/18 40 13 7 lb 6 oz Male vaginal live - full term epidural IH 1 wk baby would latch induced hyper- Zeb Delivery Date: 12/06/18 Last Updated by: Sunitha Wisdom RRivas Induction Evaluation Evaluation Baseline heart rate: 130 Variability: Moderate (11-25) monitor accelerations: Present Monitor Decelerations: Absent Contraction Frequency (minutes): 6 Status: Category l Dilation (cm): 2 Effacement (%): 50 Dilation: 1-2 cm Effacement: 40-50% station: -2 Position of cervix: mid Consistency: soft Almanzar score: 6 PFSH Medical History Chicken pox (~2000) Chronic hypertension Spontaneous vaginal delivery Surgical History Anesthesia [place] teeth removed (~2005) Family History Father Hyperlipidemia Hypertension Neuropathy of both feet Diabetes mellitus Mother Severe anemia Autoimmune disease Hypertension Brother SIDS (sudden infant syndrome) Sister History of bipolar disorder Depression Asthma Mental health problem Grandfather Rheumatoid arthritis Grandmother Macular degeneration Grandfather Hyperlipidemia Hypertension Grandmother Asthma History of bipolar disorder Atrial fibrillation Mental health problem Unknown Breast cancer Social History marital status: number of children: 1 household members: spouse and children lives independently: Yes housing: house pets and animals: Yes (Cats - aware toxoplasmosis) education level: college occupational status: employed current occupational exposures/hazards: No special chandrika needs: No seatbelt use: always water heater temp set < 120 deg: Yes working smoke detector in home: Yes fire extinguisher in home: Yes carbon monox detector in home: Yes do you feel safe at home: Yes Smoking Status: Never smoker second hand exposure: No alcohol intake: former substance use type: does not use during the past year weight has: increased > 10 lbs well-balanced diet: daily or most days daily servings fruits/ve-4 caffeine: Yes (200mg) Type(s) of exercise: walking frequency: 5-6 times per week Meds Home Medications and Allergies Home Medications Medication Instructions Recorded Confirmed Type calcium carbonate 600 mg calcium 600 mg PO DAILY 08/29/21 03/21/22 History (1,500 mg) tablet (Calcium) cholecalciferol (vitamin D3) 25 25 mcg PO DAILY 08/29/21 03/21/22 History mcg (1,000 unit) capsule prenat.vits,da,moe-lwls-zcuee 1 tab PO DAILY 08/29/21 03/17/22 History Double Electric Breast Pump and #1 ea 11/11/21 03/17/22 Rx supplies labetalol 100 mg tablet See Rx Instructions .Route 12/22/21 03/17/22 Rx .COMPLEX #60 tabs Allergies Allergy/AdvReac Type Severity Reaction Status Date / Time No Known Drug Allergies Allergy Verified 03/17/22 09:42 Review of Systems Review of Systems ROS: Yes All systems reviewed with the patient and are negative except as otherwise documented OB Exam Narrative Exam Narrative: Temperature 35.9? blood pressure 140/89 heart rate 84 HENMT Head: normal to inspection Eyes General: appearance normal, both eyes and all related structures Resp Effort & Inspection: normal respiratory effort Auscultation: clear to auscultation bilaterally Cardio Rate: regular rate Rhythm: regular rhythm Extremities Lower extremity: Yes normal to inspection; No edema Presentation: vertex Estimated Weight (lbs): 7 Objective Labs Result Diagrams: 03/21/22 08:00 Assessment and Plan Assessment and Plan Assessment and Plan narrative: 36-year-old at 39 weeks gestation here for induction due to chronic hypertension on labetalol and advanced maternal age. Fetus also with known small midline cleft palate. Parents met with craniofacial surgery during the and have the appropriate bottles needed. Plan Begin Pitocin per protocol No indication for GBS prophylaxis AROM when able Anticipate
[2022-03-21] MEDS: LACTATED RINGERS 1,000 ML 100 ML IV ×2 (07:30→13:53)
[2022-03-21 08:52] LABS: COVID19 -Nasal RAPID Negative (Negative)
[2022-03-21 08:57] LABS: Add Manual Diff / Slide Review NO; Basophils Absolute Auto 0 /uL (0-100); Basophils Percent Auto 0.3 % (0-2); Eosinophils Absolute Auto 200 /uL (0-450); Eosinophils Percent Auto 2.4 % (2-4); Hematocrit 30.8 % (36-46); Hemoglobin 10.3 g/dL (12.0-16.0); Lymphocytes Absolute Auto 1600 /uL (1100-4500); Lymphocytes Percent Auto 22.2 % (25-40); Mean Corpuscular HGB Conc 33.5 % (30-36); Mean Corpuscular Hemoglobin 30.6 PG (26-34); Mean Corpuscular Volume 91.5 fL (80-100); Monocytes Absolute Auto 400 /uL (0-900); Monocytes Percent Auto 5.7 % (3-14); Neutrophils Absolute Auto 5000 /uL (1500-7000); Neutrophils Percent Auto 69.4 % (50-75); Platelet Count 205 X10^3/uL (150-400); Red Blood Cell Count 3.36 X10^6/uL (4.0-5.2); Red Cell Distribution Width 13.1 % (11.6-14.8); White Blood Cell Count 7.2 X10^3/uL (4.5-11.0)
[2022-03-21] MEDS: OXYTOCIN PREMIX 30 UNIT/500 ML PLAST..BAG IV (09:26)
--- NOTE | 2022-03-21 16:28 | PM.OBPNLAB ---
Date/Time Date Patient Seen: 03/21/22 Time Patient Seen: 16:28 Pain Control Pain control: epidural Comments: Getting comfortable with epidural though having pain in her left lower abdomen/groin with contractions. Pelvic Exam Dilation (cm): 7 Effacement (%): 80 station: -2 Amniotic membrane status: Ruptured (SROM 3:36 PM with clear fluid) Contractions Monitor mode: External Pitocin rate (mU/min): 9 Contraction frequency (min): 3 Status status: Category l Heart Rate Baseline: 120 Monitor Accelerations: Present Monitor Decelerations: Absent Monitor Variability: Moderate Assessment and Plan Assessment: active labor Plan: continuous present management Comments: 36-year-old at 39 weeks gestation here for induction for chronic hypertension and AMA also with known cleft palate in baby. She is progressing well with Pitocin and now comfortable with epidural. SROM at 3:36 p.m. with clear fluid. Expectant management. Anticipate .
--- NOTE | 2022-03-21 16:55 | P.PCN_ITS ---
Regional Block Pre-procedure Procedure: Continuous Lumbar Epidural for L&D Attending OB provider: Padmini Dunaway PM/ROS narrative: , term, chronic HTN well controlled on labetolol ASA Class: II Labs: Hct 30.8 % (36-46) L 03/21/22 08:00 Plt Count 205 X10^3/uL (150-400) 03/21/22 08:00 Medications: Current Medications Generic Name Dose Route Start Last Admin Trade Name Freq PRN Reason Stop Dose Admin Calcium Carbonate 1,000 mg 03/21/22 08:14 Calcium Carbonate 500 Mg Tab PO Q2HR PRN Dyspepsia Carboprost Tromethamine 250 mcg 03/21/22 08:14 Carboprost 250 Mcg/Ml Ampul IM Q90M PRN Bleeding Diphenhydramine HCl 25 mg 03/21/22 15:16 Diphenhydramine 50 Mg/Ml Vial IV Q10M PRN Pruritis Ephedrine Sulfate 5 mg 03/21/22 15:16 Ephedrine 50 Mg/Ml Vial IV Q5M PRN Blood pressure decrease more than 20% of baseline. Fentanyl 50 mcg 03/21/22 08:14 Fentanyl 100 Mcg/2 Ml Inj IV Q1H PRN Pain, Moderate (4-6) Lactated Ringer's 1,000 mls @ 100 mls/hr 03/21/22 08:15 03/21/22 13:53 Lactated Ringers IV 100 mls/hr CONT KOURTNEY Administration Oxytocin/Lactated Ringer's 30 unit in 500 mls @ 1 mls/hr 03/21/22 08:15 03/21/22 09:26 Oxytocin Premix IV 1 milliunit/min TITRATE KOURTNEY 1 mls/hr Administration Protocol 1 MILLIUNIT/MIN Tranexamic Acid 1,000 mg/ 100 mls @ 200 mls/hr 03/21/22 08:14 Sodium Chloride IV NOW PRN Bleeding Oxytocin/Lactated Ringer's 30 unit in 500 mls @ 200 mls/hr 03/21/22 08:14 Oxytocin Premix IV CONT PRN Bleeding Protocol FENT 2MCG/ML BUPIV 0.125% EPI 200 mcg in 100 mls @ 6 mls/hr 03/21/22 15:30 Fentanyl/Bupiv/Ns 2mcg/Ml - 0.125% EPIDURAL CONT KOURTNEY Methylergonovine Maleate 0.2 mg 03/21/22 08:14 Methylergonovine 0.2 Mg/Ml Vial IM NOW PRN Bleeding Methylergonovine Maleate 0.2 mg 03/21/22 08:14 Methylergonovine 0.2 Mg Tablet PO Q6HR PRN Heavy Bleeding Misoprostol 1,000 mcg 03/21/22 08:14 Misoprostol 200 Mcg Tablet WV NOW PRN Bleeding Misoprostol 800 mcg 03/21/22 08:14 Misoprostol 200 Mcg Tablet WV NOW PRN Bleeding Misoprostol 400 mcg 03/21/22 08:14 Misoprostol 200 Mcg Tablet SL NOW PRN Bleeding Nalbuphine HCl 2.5 mg 03/21/22 15:16 Nalbuphine 20 Mg/Ml Ampul IV Q10M PRN Pruritis Naloxone HCl 0.2 mg 03/21/22 08:14 Naloxone 0.4 Mg/Ml Vial IV Q2MIN PRN Opiate Reversal Ondansetron HCl 4 mg 03/21/22 08:14 Ondansetron 4 Mg/2 Ml Inj IV Q4HR PRN Nausea And Vomiting Oxytocin 10 unit 03/21/22 08:14 Oxytocin 10 Unit/Ml Vial IM NOW PRN Bleeding Allergies: Allergies Allergy/AdvReac Type Severity Reaction Status Date / Time No Known Drug Allergies Allergy Verified 03/17/22 09:42 Procedure Insertion date: 03/21/22 Insertion time: 15:26 Prep/Local: betadine x3 and 1% lidocaine Interspace: L3-4 Patient position: sitting Needle: 18 gauge Hustead (CSE: 27g Pencan through Hustead, clear CSF, 1mL 0.25% bupiv) Loss of resistance with: saline KYREE at (cm): 4 Catheter placed at SKIN (cm): 9 Catheter in SPACE (cm): 5 Insertion: No CSF, No Blood, No Paresthesia with insertion, No Paresthesia with injection and No Test dose reaction Initial Medications TEST DOSE time: 15:28 TEST DOSE: 1.5% lidocaine with epinephrine 1:200k (mL): 3 Infusion INFUSION: 0.125% bupivacaine and with fentanyl 2 mcg/mL Initial rate (mL/hr): 6 Subsequent interventions: L inguinal window, 5mL 0.25% bupiv and 50mcg fentanyl at 1650 Post-procedure Anesthesia time START: 15:10 Anesthesia time END: 17:37 Post-procedure Anesthesia Assessment: Yes CV function: HR/BP stable, Yes Resp function: RR/sat/airway adequate, Yes Mental status appropriate and No Anes thesia complications
--- NOTE | 2022-03-21 17:47 | P.PCNOB_ITS ---
Labor & Delivery Delivery date: 03/21/22 Induction method: per pitocin protocol Delivery monitor: external FHT Route of delivery: L&D Laceration Description: None Estimated blood loss (mL): 150 Anesthesia Type: Epidural Narrative: Hospital problems: 39 weeks of Chronic hypertension Advanced maternal age STAGE I: Labor Patient was admitted for Pitocin induction for chronic hypertension maternal age. She received Pitocin per protocol and went on to receive an epidural. Spontaneous rupture membranes occurred at 3:36 p.m. shortly after epidural plac ement. Fluid was clear. heart tones category 1 throughout stage I. She was complete at 4:30 p.m.. STAGE II: Delivery Patient was complete and pushing then had a decelerations down to the 90s without returned to baseline. Pitocin was turned off, IV fluids bolused and oxygen administered. Heart tones remained in the 90s to low 100s. Dr. Morin was called for vacuum assistance. Patient continued to push well and brought the baby down to . Dr. Morin then applied a vacuum and infant's head delivered easily with one pull. Vacuum removed. There was a tight nuchal cord which was reduced. Infant turned from MCKENZIE to YUNG after reduction of the cord. Remainder of infant delivered without difficulty. He was immediately placed on mother's abdomen. Cord was clamped and cut after 1 minute delay. Apgars were 7 and 8. No resuscitation required beyond drying and stimulating and he remained with mother. STAGE III: Placenta/Cord Placenta delivered at 1727 after active management and appeared intact with a three-vessel cord. Pitocin bolus given via the IV after delivery of placenta. The vagina was inspected. There was a superficial left labial laceration which was not repaired. No other lacerations. EBL: 150 mL. Needle and sponge counts were correct. The vagina was inspected and no items were left in situ. Patient was doing well with Wilder, her and at bedside. Baby 1: Infant gender: Male Presentation: vertex Position: Right Occiput Anterior Placenta delivery description: Spontaneous Cord Vessel Description: 3 Vessels, Nuchal Cord and Tight score (1 min): 7 score (5 min): 8 Plan for aftercare: Routine care
[2022-03-22] MEDS: IBUPROFEN 600 MG TABLET PO ×2 (00:57→06:44)
[2022-03-22 08:06] VITALS: BP 144/80; PULSE 78
[2022-03-22] MEDS: DOCUSATE 100 MG CAPSULE PO (08:06)
[2022-03-22] MEDS: PRENATAL VIT,CALC/IRON/FOLIC 1 TABLET 1 TAB PO (08:06)
[2022-03-22] MEDS: FERROUS SULFATE 325 MG TABLET PO (08:06)
[2022-03-22] MEDS: LABETALOL 100 MG TABLET PO (08:06)
--- NOTE | 2022-03-22 09:33 | P.DS_ITS ---
Discharge Providers Provider Date of admission: 03/21/22 07:02 Discharge Date: 03/22/22 Primary care physician: Padmini Dunaway DO Consults: 03/22/22 17:51 Consult to Passport Application Examiner Routine Comment: Discharge provider: Padmini Dunaway DO Summary Hospital Course Date Patient Seen: 03/22/22 Time Patient Seen: 10:29 Diagnoses: 39 weeks of Chronic hypertension Advanced maternal age Vacuum assisted vaginal delivery Hospital Course: Patient is a 36-year-old G2 now P2 after vacuum assisted vaginal delivery for intolerance of labor. Patient was brought in for induction at 39 weeks due to chronic hypertension and advanced maternal age. She progressed after Pitocin and went on to receive an epidural. She pushed well however there was a prolonged deceleration with pushing necessitating vacuum assisted vaginal delivery with Dr. Morin. Infant did well with Apgars of 7 and 8. course has been uncomplicated. Patient is ambulating, voiding and tolerating a diet. Vaginal bleeding is moderate pain controlled with minimal ibuprofen. Prenatally there was concern for a cleft palate in infant however palate appears normal. She wishes to bottle feed. Blood pressure is well controlled with labetalol without signs of preeclampsia. Advised patient to call for fevers, severe pain or bleeding through more than a pad an hour. Follow-up in clinic in 6 weeks or sooner if needed. Peripartum Data Delivery Method: Assisted Delivery (Vacuum) Laceration Description: None complications: none [place] 1: Gender: Male Disposition of : home Status at Discharge Cognitive/behavioral status at discharge: at baseline, oriented Functional status at discharge: independent ambulation Overall status at discharge: patient is progressing back to baseline Time Spent with Patient Time attestation: Total time spent providing and/or coordinating discharge services: Time spent: Less than 30 minutes Objective Labs Result Diagrams: 03/21/22 08:00 Labs: Laboratory Results - last 24 hr 03/21/22 08:00 Blood Type A Positive Antibody Screen Negative Exam Vital Signs (past 8 hours): - 03/22/22 08:06 Pulse Rate 78 Blood Pressure 144/80 H Narrative Exam Narrative: General: Awake and alert, no acute distress. HEENT: NCAT, EOMI, moist oral mucosa CV: Regular rate and rhythm, no murmurs, rubs or gallops Lungs: CTAB, no wheezes, rales, or rhonchi Abdomen: Soft, nontender; bowel tones active; uterus firm 1 cm below umbilicus Extremities: Warm, no edema Discharge Plan Discharge Plan Patient Disposition: Home Discharge orders & Medications Prescriptions: Continued (DME) Double Electric Breast Pump and supplies See Rx Instructions .ROUTE .MEDSUPPLY Qty: 1 0RF Rx Instructions: Use daily as directed labetalol 100 mg tablet See Rx Instructions .ROUTE .COMPLEX Qty: 60 2RF Dose Instruction: take 1 tablet by mouth twice a day Rx Instructions: take 1 tablet by mouth twice a day calcium carbonate [Calcium 600] 600 mg calcium (1,500 mg) tablet 600 mg PO DAILY cholecalciferol (vitamin D3) 25 mcg (1,000 unit) capsule 25 mcg PO DAILY prenat.vits,da,bze-csfv-jzhjc Tablet 1 tab PO DAILY Follow up/Referrals: Padmini Dunaway DO [Primary Care Provider] - Diet/Activity/Treatments Diet: Diet as Tolerated Skin/Wound/Dressing Care Report to your healthcare provider any signs of infection, such as:: chills, fever, night sweats, increased pain, unusual drainage and unusual redness Visit Report/Discharge Packet Stand Alone Forms: Discharge: Care Visit Report Forms: Patient Portal/API, Stroke Signs & Symptoms Discharge Data Primary Care Provider: Padmini Dunaway
== END 2022-03-22 14:20 | disposition home or self-care (01) | DRG 807 ==
PROVIDERS: Admitting Provider Family Medicine; Family Provider Specialist; PCP Family Medicine; Referring Provider Family Medicine; Visit Provider Family Medicine
DX: O13.4 Gestational [pregnancy-induced] hypertension without significant proteinuria, complicating childbirth (principal); Z37.0 Single live birth; Z3A.39 39 weeks gestation of pregnancy; O76 Abnormality in fetal heart rate and rhythm complicating labor and delivery; Z20.822 Contact with and (suspected) exposure to COVID-19
CPT/HCPCS: 01967; 59050; 59400; 85025; 86850; 86900; 86901; 87635; C9803; G0379; J2590

== ENCOUNTER → 2024-02-22 10:56 | Outpatient (CLI) | payer OTHER, SELFPAY ==
--- NOTE | 2024-02-22 11:12 | EKG_ITS ---
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
== END ==
PROVIDERS: Family Provider Specialist; PCP Family Medicine; Referring Provider Family Medicine; Visit Provider Family Medicine
DX: R00.2 Palpitations (principal); F41.9 Anxiety disorder, unspecified; I10 Essential (primary) hypertension; Z13.9 Encounter for screening, unspecified; F32.A Depression, unspecified
CPT/HCPCS: 93005

== ENCOUNTER → 2024-02-23 07:48 | Outpatient (CLI) | payer OTHER, SELFPAY ==
[2024-02-23 08:46] LABS: Add Manual Diff / Slide Review NO; Basophils Absolute Auto 0 /uL (0-100); Basophils Percent Auto 0.6 % (0-2); Eosinophils Absolute Auto 100 /uL (0-450); Eosinophils Percent Auto 1.7 % (2-4); Hematocrit 37.3 % (36-46); Hemoglobin 12.8 g/dL (12.0-16.0); Lymphocytes Absolute Auto 1700 /uL (1100-4500); Lymphocytes Percent Auto 33.3 % (25-40); Mean Corpuscular HGB Conc 34.3 % (30-36); Mean Corpuscular Hemoglobin 30.6 PG (26-34); Mean Corpuscular Volume 89.3 fL (80-100); Monocytes Absolute Auto 300 /uL (0-900); Monocytes Percent Auto 5.1 % (3-14); Neutrophils Absolute Auto 3000 /uL (1500-7000); Neutrophils Percent Auto 59.3 % (50-75); Platelet Count 324 X10^3/uL (150-400); Red Blood Cell Count 4.17 X10^6/uL (4.0-5.2); Red Cell Distribution Width 12.6 % (11.6-14.8); White Blood Cell Count 5.1 X10^3/uL (4.5-11.0)
[2024-02-23 09:03] LABS: HEMOLYSIS < 15 (0-50); Iron 148 ug/dL (37-170)
[2024-02-23 09:05] LABS: Alanine Aminotransferase 20 IU/L (<35); Albumin Globulin Ratio 1.7 (1.0-2.8); Alkaline Phosphatase 47 U/L (38-126); Aspartate Aminotransferase 26 IU/L (14-36); BUN Creatinine Ratio 12.1 (6-22); Bilirubin Total 0.5 mg/dL (0.2-1.3); Blood Urea Nitrogen 8 mg/dL (7-17); Calcium 9.4 mg/dL (8.4-10.2); Carbon Dioxide 24 mmol/L (22-32); Chloride 103 mmol/L (98-107); Cholesterol 207 mg/dL (140-199); Estimated Glomerular Filt Rate > 60 mL/min (>60); Globulin 2.9 g/dL (1.7-4.1); Glucose 94 mg/dL (70-100); HDL Cholesterol 51 mg/dL (40-60); HEMOLYSIS < 15 (0-50); LDL Cholesterol Calculated 131 mg/dL (<100); Potassium 3.9 mmol/L (3.4-5.1); Sodium 138 mmol/L (137-145); Total Protein 7.9 g/dL (6.3-8.2); Triglycerides 126 mg/dL (35-150)
[2024-02-23 09:15] LABS: Percent Iron Saturation 39 % (15-50); Total Iron Binding Capacity 377 ug/dL (265-497); Transferrin 299 mg/dL (206-381)
[2024-02-23 09:19] LABS: Vitamin D 25 Hydroxy (D3) 54.5 ng/mL (30.0-100.0)
[2024-02-23 09:36] LABS: Ferritin 27 ng/mL (6-137); TSH w/ Reflex to FT4 1.55 uIU/mL (0.47-4.68)
[2024-02-23 10:51] LABS: Creatinine Urine Random 64.29 mg/dL
[2024-02-23 10:52] LABS: Microalbumin Urine Random 1.3 mg/dL (0-1.6)
== END ==
LOC: LAB 07:49
PROVIDERS: Family Provider Specialist; PCP Family Medicine; Referring Provider Family Medicine; Visit Provider Family Medicine
DX: Z13.21 Encounter for screening for nutritional disorder (principal); Z13.220 Encounter for screening for lipoid disorders; R00.2 Palpitations; F41.9 Anxiety disorder, unspecified; I10 Essential (primary) hypertension; F32.A Depression, unspecified
CPT/HCPCS: 36415; 80053; 80061; 82043; 82306; 82570; 82728; 83540; 83550; 84443; 85025

== ENCOUNTER → 2025-04-29 11:16 | Outpatient (CLI) | payer OTHER, SELFPAY ==
--- NOTE | 2025-04-29 11:17 | DI.RAD.S_ITS ---
PROCEDURE: XR CERVICAL SPINE 2V OR 3V
== END ==
PROVIDERS: PCP Family Medicine; Referring Provider Family Medicine; Visit Provider Family Medicine
DX: M54.2 Cervicalgia (principal); R20.2 Paresthesia of skin
CPT/HCPCS: 72040

== ENCOUNTER → 2025-04-30 17:11 | Outpatient (CLI) | payer OTHER, SELFPAY ==
--- NOTE | 2025-04-30 17:12 | DI.MRI.S_ITS ---
PROCEDURE: MR CERVICAL SPINE WO CON INDICATIONS: neck pain/ bilateral parathesia TECHNIQUE: Noncontrast sagittal T1 spin echo and T2 fast spin echo, sagittal STIR, foraminal oblique sagittal T2 fast spin echo, and axial gradient echo or T2 fast spin echo through the cervical spine. COMPARISON: None. FINDINGS: Image quality: Excellent. Alignment and Curvature: There is normal bony alignment. Bone Marrow: Marrow demonstrates normal overall signal. Spinal Cord: Visualized spinal cord has normal size and signal. No cerebellar tonsillar herniation. Paraspinous Soft Tissues: No paravertebral masses. Prevertebral soft tissues are normal in thickness. Of note, there is a right dominant vertebral artery system with the right vertebral artery entering and exiting the right C4-C5 neural foramen, causing moderate to severe narrowing at this level. No substantial degenerative change in the cervical spine. IMPRESSION: No substantial degenerative change of the cervical spine. Of note, there is a right dominant vertebral artery system with the right vertebral artery entering and exiting the right C4-C5 neural foramen, causing moderate to severe narrowing at this level. CTA of the neck can be considered for further evaluation. The spinal canal and neural foramina are widely patent otherwise. Dictated by: Virginia Burch M.D. on 05/03/2025 at 15:14 Approved by: Virginia Burch M.D. on 05/03/2025 at 15:21
== END ==
PROVIDERS: PCP Family Medicine; Referring Provider Family Medicine; Visit Provider Family Medicine
DX: R20.2 Paresthesia of skin (principal); M48.02 Spinal stenosis, cervical region; Z87.828 Personal history of other (healed) physical injury and trauma
CPT/HCPCS: 72141

== ENCOUNTER → 2025-05-12 07:00 | Outpatient (CLI) | payer OTHER, SELFPAY ==
--- NOTE | 2025-05-12 07:01 | DI.CT.S_ITS ---
PROCEDURE: CT ANGIO HEAD AND NECK INDICATIONS: R vertebral artery stenosis at C4-5, b/l UE numbness/tingle TECHNIQUE: After the administration of intravenous contrast, 1 mm thick sections acquired from the aortic arch through the [place]. 3-dimensional pjuwtxe-atonljmkw-piaefaifqw (MIP) and/or volume rendering reformats were acquired of the central intracranial vasculature and neck separately. For radiation dose reduction, the following was used: automated exposure control, adjustment of mA and/or kV according to patient size. COMPARISON: [facility], , MR CERVICAL SPINE WO CON, 04/30/2025, 17:17. FINDINGS: Image quality: Diagnostic HEAD ANGIOGRAPHY: Anterior circulation: ICAs: Patent ACAs: Patent MCAs: Patent AComm: No aneurysm Venous sinuses: Patent Posterior circulation: Dominance: Right Vertebral arteries: Diminutive left vertebral artery, not seen past C2 Basilar artery: Patent PComms: No aneurysm refrigeration engine operator: dominant circulation to the right ESTIMATOR BINDING. Overall refrigeration engine operator appear patent. A possible DVA is seen adjacent to the right posterior communicating artery. NECK ANGIOGRAPHY: Aortic arch and subclavian arteries: Patent CCAs: Patent ICA origins (by NASCET criteria): No hemodynamically significant narrowing. ICAs: Patent ECAs: Origins are patent. Vertebral arteries: Diminutive left vertebral artery, with nonvisualization past C2. The right vertebral artery is large in tortuous, with focal kinking in the V1 segment. A loop formation is seen at the level of C4-C5, entering the neural foramen and epidural space Soft tissues: Nonspecific prominent cervical lymph nodes are seen bilaterally. Lung apices: No apical pneumothorax. Bones: No aggressive appearing osseous abnormality. Mild paranasal sinus mucosal thickening. IMPRESSION: The right vertebral system is dominant in the posterior circulation. Significantly tortuous right vertebral artery, with focal kinking in the V1 segment and a loop formation entering the neural foramen and epidural space at C4-C5. The latter can be associated with mass effect upon the exiting C5 nerve root. There is no occlusion of the right vertebral artery. Contrast is seen throughout its course. Basilar artery is patent. The left vertebral artery is diminutive, with no contrast seen beyond C2. 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 Other findings above. Any quantitative measurements of stenosis were performed using NASCET criteria. Dictated by: Isrrael Rosario M.D. on 05/12/2025 at 8:50 Approved by: Isrrael Rosario M.D. on 05/12/2025 at 9:03
[2025-05-12 07:48] LABS: Estimated Glomerular Filt Rate > 60 mL/min (>60)
== END ==
LOC: CT 07:00
PROVIDERS: PCP Family Medicine; Referring Provider Family Medicine; Visit Provider Family Medicine
DX: I77.1 Stricture of artery (principal); R20.2 Paresthesia of skin; Z87.828 Personal history of other (healed) physical injury and trauma
CPT/HCPCS: 36415; 70496; 70498; 82565; Q9967